=== PATIENT | female | born 1945 | race Caucasian/White ===

== ENCOUNTER 2016-11-16 08:14 | Inpatient (IN) | payer MEDICARE, OTHER ==
[2016-10-22 12:59] LABS: HEMATOCRIT 34.2 % (36.0-47.0); HEMOGLOBIN 11.5 g/dL (12.0-15.5); HGB HCT DIFFERENCE 0.3; MEAN CORPUSCULAR HEMOGLOBIN 30.3 pg (27.0-33.4); MEAN CORPUSCULAR HGB CONC 33.7 g/dL (32.0-36.0); MEAN CORPUSCULAR VOLUME 90 fl (80-97); RED BLOOD COUNT 3.81 10^6/uL (3.72-5.28); RED CELL DISTRIBUTION WIDTH 13.8 % (11.5-14.0); WHITE BLOOD COUNT 5.4 10^3/uL (4.0-10.5)
[2016-10-22 13:11] LABS: APPEARANCE,URINE CLEAR; BILIRUBIN,URINE NEGATIVE (NEGATIVE); GLUCOSE, URINE NEGATIVE (NEGATIVE); KETONES,URINE NEGATIVE (NEGATIVE); LEUKOCYTE ESTERASE,URINE NEGATIVE (NEGATIVE); NITRITE,URINE NEGATIVE (NEGATIVE); PROTEIN,URINE NEGATIVE (NEGATIVE); UROBILINOGEN,URINE NEGATIVE mg/dL (<2.0)
[2016-10-22 13:26] LABS: ANION GAP 10 (5-19); BLOOD UREA NITROGEN 19 mg/dL (7-20); CALCIUM 9.4 mg/dL (8.4-10.2); CARBON DIOXIDE 27 mmol/L (22-30); CHLORIDE 99 mmol/L (98-107); CREATININE RESULT 0.76 mg/dL (0.52-1.25); GLUCOSE 85 mg/dL (75-110); POTASSIUM 4.6 mmol/L (3.6-5.0)
[~2016-11-16 08:14] MED LIST: BUPIVACAINE INJ/PF LIPOSOME/PF 266 MG/20 ML SDV INFIL PRN; BUPIVACAINE INJ/PF LIPOSOME/PF 266 MG/20 ML SDV ONE; CEFAZOLIN INJ 1 GM VIAL IV PRN; IBUPROFEN 800 MG in NORMAL SALINE 250 ML IV PRN; LACTATED RINGERS 1000 ML IV PRN; LANSOPRAZOLE 15 MG TAB.RAP.DR PO PRN; LIDOCAINE 0.5% INJ-PF (5 MG/ML) 50 ML SDV SUBCUT PRN; OXYCODONE HCL SR 10 MG TABLET PO PRN; SCOPOLAMINE HYDROBROMIDE 1.5 MG PATCH.TD72 TD PRN; THROMBIN (BOVINE) TOPICAL 20000 UNIT VIAL ONE; THROMBIN (BOVINE) TOPICAL 5000 UNIT VIAL ONE; VANCOMYCIN HCL 1,000 MG in DEXTROSE 5%-WATER 250 ML IV PRN
[2016-11-16] MEDS ORDERED: PROPOFOL INJ 200 MG/20 ML VIAL IV ONE (09:11)
[2016-11-16] MEDS ORDERED: MIDAZOLAM 2 MG/2 ML INJ ONE ×2 (09:11)
[2016-11-16] MEDS ORDERED: FENTANYL CITRATE INJ/PF 100 MCG/2 ML AMPUL ONE (09:11)
[2016-11-16] MEDS ORDERED: ONDANSETRON HCL INJ/PF 4 MG/2 ML SDV ONE (09:11)
[2016-11-16] MEDS ORDERED: DEXAMETHASONE SOD PHOSPHATE INJ 4 MG/1 ML VIAL ONE (09:11)
[2016-11-16] MEDS ORDERED: MORPHINE SULFATE 10 MG/ML INJ ONE (09:12)
[2016-11-16] MEDS ORDERED: TRANEXAMIC ACID INJ/PF 1,000 MG/10 ML SDV IV ONE ×2 (09:12→13:00)
[2016-11-16] MEDS ORDERED: MORPHINE SULFATE 10 MG/ML INJ IV PRN ×4 (11:01→11:45)
[2016-11-16] MEDS ORDERED: DIPHENHYDRAMINE HCL 50 MG/ML VIAL IV PRN ×2 (11:01→11:45)
[2016-11-16] MEDS ORDERED: PROMETHAZINE HCL INJ 25 MG/1 ML VIAL IV PRN ×2 (11:01)
[2016-11-16] MEDS ORDERED: MEPERIDINE HCL/PF INJ 25 MG/1 ML DISP.SYRIN IV PRN (11:01)
[2016-11-16] MEDS ORDERED: FENTANYL CITRATE INJ/PF 100 MCG/2 ML AMPUL IV PRN ×3 (11:01)
[2016-11-16] MEDS ORDERED: BACITRACIN INJ 50,000 UNIT VIAL ONE (11:22)
[2016-11-16] MEDS ORDERED: BUPIVACAINE INJ/PF LIPOSOME/PF 266 MG/20 ML SDV INFIL ONE (11:30)
[2016-11-16] MEDS ORDERED: BACITRACIN INJ 50,000 UNIT VIAL IR ONE (11:30)
[2016-11-16] MEDS ORDERED: THROMBIN (BOVINE) TOPICAL 5000 UNIT VIAL TP ONE (11:30)
[2016-11-16] MEDS ORDERED: THROMBIN (BOVINE) TOPICAL 20000 UNIT VIAL TP ONE (11:30)
[2016-11-16] MEDS ORDERED: MAG HYDROX/AL HYDROX/SIMETH SUSP 30 ML UDCUP PO PRN (11:45)
[2016-11-16] MEDS ORDERED: ACETAMINOPHEN 325 MG TABLET PO PRN (11:45)
[2016-11-16] MEDS ORDERED: RINGERS SOLUTION,LACTATED 1,000 ML IV PRN (11:45)
[2016-11-16] MEDS ORDERED: MORPHINE SULFATE 10 MG/ML INJ IM PRN (11:45)
[2016-11-16] MEDS ORDERED: ONDANSETRON HCL INJ/PF 4 MG/2 ML SDV IV PRN (11:45)
[2016-11-16] MEDS ORDERED: ONDANSETRON 4 MG TAB.RAPDIS PO PRN (11:45)
[2016-11-16] MEDS ORDERED: ZOLPIDEM TARTRATE 5 MG TABLET PO PRN (11:45)
--- NOTE | 2016-11-16 11:51 | Operative Report ---
Operative Report DATE OF SURGERY: 11/16/16 PREOPERATIVE DIAGNOSIS: Failed right acetabular component POSTOPERATIVE DIAGNOSIS: Potentially infected right hip OPERATION: Right hip revision arthroplasty SURGEON: KATE DEL ANGEL ANESTHESIA: Spinal TISSUE REMOVED OR ALTERED: Tissue to pathology, tissue to microbiology, implants to pathology. ESTIMATED BLOOD LOSS: 100 PROCEDURE: The patient is a 71-year-old white female status post right hip arthroplasty in February 2016. The patient did well until recently when she progressive right hip pain and functional disability. Preoperative laboratory evaluation included a sedimentation rate of 22 mm an hour and a C reactive protein of 5. On the basis of this I assume that this was aseptic loosening and proceeded with a revision arthroplasty. With the patient in a left lateral decubitus position the operative table the right looks terms prepped and draped in sterile fashion. Using a similar incision to the initial hip arthroplasty, took a posterior approach to the hip. Upon penetrating the iliotibial band. This a large serosanguineous fluid collection. This is sent for culture and sensitivity. Tissue was then sent to pathology for frozen section. The answer from pathologist that there 10-20 PMNs per high-power field and they aggravated so that the pathologist felt that this was significant and consistent with acute inflammation. I'm not sure had a reconcile this information with the preoperative laboratory evaluation, but at this point I felt it was best to treat this as an infected hip. At this point, the acetabular liner, and the underlying acetabular shell are removed. Acetabulum is reamed again with a 57 and ending with a 59 hemispherical reamer. Subsequent to a 60 mm multihole cup was impacted into position and secured with 3 screws. A trial reduction was performed with a + 536 mm head, which gave excellent leg length rastafarian and excellent stability. At this point the wound was irrigated with 3 L normal saline and added bacitracin using the pulse lavage. The hip was then reduced and the soft tissues reapproximated using interrupted Vicryl. Skin reapproximated using zaid. A sterile dressing is applied and the patient's returned to PACU in satisfactory condition.
[2016-11-16] MEDS ORDERED: CEFTRIAXONE SODIUM 2,000 MG in DEXTROSE 5%-WATER 100 ML IV SCH (16:00)
[2016-11-16] MEDS: PREGABALIN 75 MG CAPSULE PO SCH (17:25)
[2016-11-16] MEDS: SENNOSIDES/DOCUSATE 8.6-50 MG 1 EACH TABLET PO SCH (17:25)
[2016-11-16] MEDS: CEFTRIAXONE 2 GM/D5W RTU 2 GM/50 ML RTUPB IV SCH (17:26)
[2016-11-16] MEDS: IBUPROFEN 800 MG in NORMAL SALINE 250 ML IV SCH (17:27)
[2016-11-16] MEDS ORDERED: IBUPROFEN 800 MG in NORMAL SALINE 250 ML IV SCH (18:00)
[2016-11-16] MEDS ORDERED: INFLUENZA ADLT QUAD (36MOS+) 2016-17 VAC 0.5 ML SYR IM PRN (20:50)
[2016-11-16] MEDS: RIVAROXABAN 10 MG TABLET PO SCH (21:21)
[2016-11-16] MEDS: OXYCODONE HCL SR 10 MG TABLET PO SCH (21:22)
[2016-11-16] MEDS ORDERED: VANCOMYCIN HCL 1,000 MG in DEXTROSE 5%-WATER 250 ML IV ONE (23:45)
[2016-11-17] MEDS: IBUPROFEN 800 MG in NORMAL SALINE 250 ML IV SCH ×3 (02:00→18:33)
[2016-11-17] MEDS: LEVOTHYROXINE SODIUM 0.075 MG TABLET PO SCH (05:33)
[2016-11-17] MEDS: LANSOPRAZOLE 30 MG TAB.RAP.DR PO SCH (05:34)
[2016-11-17 06:13] LABS: HEMATOCRIT 25.6 % (36.0-47.0); HEMOGLOBIN 8.8 g/dL (12.0-15.5); HGB HCT DIFFERENCE 0.8; MEAN CORPUSCULAR HEMOGLOBIN 30.5 pg (27.0-33.4); MEAN CORPUSCULAR HGB CONC 34.3 g/dL (32.0-36.0); MEAN CORPUSCULAR VOLUME 89 fl (80-97); RED BLOOD COUNT 2.88 10^6/uL (3.72-5.28); RED CELL DISTRIBUTION WIDTH 13.5 % (11.5-14.0); WHITE BLOOD COUNT 5.1 10^3/uL (4.0-10.5)
[2016-11-17 06:32] LABS: ANION GAP 6 (5-19); BLOOD UREA NITROGEN 17 mg/dL (7-20); CALCIUM 8.7 mg/dL (8.4-10.2); CARBON DIOXIDE 28 mmol/L (22-30); CHLORIDE 103 mmol/L (98-107); CREATININE RESULT 0.84 mg/dL (0.52-1.25); GLUCOSE 86 mg/dL (75-110); POTASSIUM 4.2 mmol/L (3.6-5.0); SODIUM 137.4 mmol/L (137-145)
--- NOTE | 2016-11-17 07:00 | PDOC PROGRESS REPORT ---
Subjective Progress Note for:: 11/17/16 Subjective:: Patient denies any pain Physical Exam Vital Signs: Temp Pulse Resp BP Pulse Ox 36.6 C 62 16 113/83 96 11/17/16 04:00 11/17/16 04:00 11/17/16 04:00 11/17/16 04:00 11/17/16 04:00 Intake & Output 11/15/16 11/16/16 11/17/16 06:59 06:59 06:59 Intake Total 8029 Output Total 5205 Balance 2824 General appearance: PRESENT: no acute distress Head exam: PRESENT: normocephalic Eye exam: PRESENT: EOMI Respiratory exam: PRESENT: unlabored Cardiovascular exam: PRESENT: RRR Pulses: PRESENT: +1 pedal pulses bilateral GI/Abdominal exam: PRESENT: soft Extremities exam: PRESENT: other - Right hip dressing clean dry and intact. Leg lengths are equal. Neurovascular examinations intact. Results Laboratory Results: 11/17/16 05:30 11/17/16 05:30 11/16/16 11/17/16 11/17/16 08:51 05:30 05:30 WBC 5.1 RBC 2.88 L Hgb 8.8 L Hct 25.6 L MCV 89 MCH 30.5 MCHC 34.3 RDW 13.5 Plt Count 224 Sodium 137.4 Potassium 4.2 Chloride 103 Carbon Dioxide 28 Anion Gap 6 BUN 17 Creatinine 0.84 Est GFR ( Amer) > 60 Est GFR (Non-Af Amer) > 60 Glucose 86 Calcium 8.7 Blood Type O POSITIVE Antibody Screen NEGATIVE Impressions: Pelvis X-Ray 11/16/16 11:46 IMPRESSION: SATISFACTORY POSTOPERATIVE RIGHT HIP. Status: Imported from PACS Assessment & Plan - Diagnosis (1) Mechanical loosening of prosthetic joint Qualifiers: Internal joint prosthesis site: hip Encounter type: subsequent encounter Laterality: right Qualified Code(s): T84.030D - Mechanical loosening of internal right hip prosthetic joint, subsequent encounter Is this a current diagnosis for this admission?: YesPlan: 71-year-old white female with failure of a right acetabular component. Preoperative laboratory evaluation revealed a sedimentation rate of 22 and a C- reactive protein of less than 5. It was felt to be aseptic loosening. The patient underwent revision arthroplasty yesterday. Gram stain indicates minimal polys and no bacteria. Frozen section demonstrates acute inflammation suggesting a septic process. The patient has not had any constitutional symptoms. There was an issue of neck infected dental implant in the interim between her initial hip arthroplasty in the current which would potentially service 8 etiology for her bacteremia. At this point I think it would be best to continue to treat the patient as if she has a periprosthetic infection until cultures come back negative. Patient will be working with physical therapy today and tomorrow. Antic[facility] on . Depending on the results of cultures potentially the insertion of PICC line and 6 weeks of antibiotics may be appropriate. - Time Time Spent with patient: 15-24 minutes Anticipated discharge: SNF Within: within 48 hours
[2016-11-17] MEDS ORDERED: LEVOTHYROXINE SODIUM 0.025 MG TABLET PO SCH (08:00)
[2016-11-17] MEDS: OXYCODONE HCL SR 10 MG TABLET PO SCH ×2 (10:27→21:58)
[2016-11-17] MEDS: PRENATAL VITAMIN W-O CA NO5/FE FUMARATE/FA CAPSULE PO SCH (10:27)
[2016-11-17] MEDS: PREGABALIN 75 MG CAPSULE PO SCH ×2 (10:28→18:32)
[2016-11-17] MEDS: SENNOSIDES/DOCUSATE 8.6-50 MG 1 EACH TABLET PO SCH ×2 (10:34→18:32)
--- NOTE | 2016-11-17 12:47 | PDOC PROGRESS REPORT ---
Subjective Progress Note for:: 11/17/16 Subjective:: The patient seen today in consultation. She states to feel relatively well. She denies any new symptoms. She is status post revision of her hip. Upon reviewing her recent records it appears to me that Dr. Rich is concerned about possible infection and loosening of that joint. Physical Exam Vital Signs: Temp Pulse Resp BP Pulse Ox 97.9 F 60 18 108/62 96 11/17/16 11:23 11/17/16 11:23 11/17/16 11:23 11/17/16 11:23 11/17/16 11:23 Intake & Output 11/16/16 11/17/16 11/18/16 06:59 06:59 06:59 Intake Total 8029 Output Total 5205 Balance 2824 General appearance: PRESENT: no acute distress Eye exam: PRESENT: EOMI, PERRLA Neck exam: ABSENT: carotid bruit, JVD Respiratory exam: PRESENT: clear to auscultation toribio Cardiovascular exam: PRESENT: RRR, +S1, +S2 Pulses: PRESENT: normal carotid pulses Vascular exam: PRESENT: normal capillary refill GI/Abdominal exam: PRESENT: normal bowel sounds, soft Extremities exam: PRESENT: tenderness Musculoskeletal exam: PRESENT: tenderness Neurological exam: PRESENT: alert, oriented to time, CN II-XII grossly intact Results Laboratory Results: 11/17/16 05:30 11/17/16 05:30 11/17/16 11/17/16 05:30 05:30 WBC 5.1 RBC 2.88 L Hgb 8.8 L Hct 25.6 L MCV 89 MCH 30.5 MCHC 34.3 RDW 13.5 Plt Count 224 Sodium 137.4 Potassium 4.2 Chloride 103 Carbon Dioxide 28 Anion Gap 6 BUN 17 Creatinine 0.84 Est GFR ( Amer) > 60 Est GFR (Non-Af Amer) > 60 Glucose 86 Calcium 8.7 Impressions: Pelvis X-Ray 11/16/16 11:46 IMPRESSION: SATISFACTORY POSTOPERATIVE RIGHT HIP. Assessment & Plan - Diagnosis (1) Mechanical loosening of prosthetic joint Qualifiers: Internal joint prosthesis site: hip Encounter type: subsequent encounter Laterality: right Qualified Code(s): T84.030D - Mechanical loosening of internal right hip prosthetic joint, subsequent encounter Is this a current diagnosis for this admission?: YesPlan: I agree with Dr. Hilario's consideration of a possible infection. The patient did give a history of an infected implant iza. I would continue with the antibiotics until the cultures are negative. (2) Anemia associated with acute blood loss Is this a current diagnosis for this admission?: YesPlan: Would recommend rechecking blood counts in the morning. (3) Hypothyroidism (acquired) Is this a current diagnosis for this admission?: YesPlan: We'll continue current medications.
[2016-11-17] MEDS: CLINDAMYCIN 600 MG/D5W RTU 50 ML IV SCH ×2 (15:31→21:57)
[2016-11-17] MEDS: CEFTRIAXONE 2 GM/D5W RTU 2 GM/50 ML RTUPB IV SCH (18:34)
[2016-11-17] MEDS: OXYCODONE HCL IR 5 MG TABLET PO PRN (20:30)
[2016-11-17] MEDS: RIVAROXABAN 10 MG TABLET PO SCH (21:58)
[2016-11-18] MEDS: IBUPROFEN 800 MG in NORMAL SALINE 250 ML IV SCH (02:03)
[2016-11-18] MEDS: CLINDAMYCIN 600 MG/D5W RTU 50 ML IV SCH ×3 (05:43→21:27)
[2016-11-18] MEDS: LANSOPRAZOLE 30 MG TAB.RAP.DR PO SCH (05:44)
[2016-11-18] MEDS: LEVOTHYROXINE SODIUM 0.075 MG TABLET PO SCH (05:44)
[2016-11-18 07:48] LABS: ANION GAP 6 (5-19); BLOOD UREA NITROGEN 15 mg/dL (7-20); CALCIUM 8.1 mg/dL (8.4-10.2); CARBON DIOXIDE 29 mmol/L (22-30); CHLORIDE 103 mmol/L (98-107); GLUCOSE 82 mg/dL (75-110); POTASSIUM 4.6 mmol/L (3.6-5.0); SODIUM 137.5 mmol/L (137-145)
[2016-11-18 08:07] LABS: HEMATOCRIT 25.6 % (36.0-47.0); HEMOGLOBIN 8.7 g/dL (12.0-15.5); HGB HCT DIFFERENCE 0.5; MEAN CORPUSCULAR HEMOGLOBIN 30.1 pg (27.0-33.4); MEAN CORPUSCULAR HGB CONC 33.9 g/dL (32.0-36.0); MEAN CORPUSCULAR VOLUME 89 fl (80-97); RED BLOOD COUNT 2.88 10^6/uL (3.72-5.28); RED CELL DISTRIBUTION WIDTH 13.6 % (11.5-14.0); WHITE BLOOD COUNT 4.6 10^3/uL (4.0-10.5)
--- NOTE | 2016-11-18 08:13 | PDOC PROGRESS REPORT ---
Subjective Progress Note for:: 11/18/16 Subjective:: The patient states to feel better this morning. She had her dressing changed area She states that there is no pain when she is laying down but she has some pain when she gets up and walks around. Discussed the possibility of an infection and the use of antibiotics. Discussed the possibility of the need for a standard protocol for an infection which is 6 weeks. Physical Exam Vital Signs: Temp Pulse Resp BP Pulse Ox 98.0 F 60 18 109/57 L 94 11/18/16 07:07 11/18/16 07:07 11/18/16 07:07 11/18/16 07:07 11/18/16 07:07 Intake & Output 11/17/16 11/18/16 11/19/16 06:59 06:59 06:59 Intake Total 8029 2260 Output Total 5205 600 Balance 2824 1660 General appearance: PRESENT: no acute distress Head exam: PRESENT: atraumatic Eye exam: PRESENT: conjunctiva pink Neck exam: ABSENT: carotid bruit, JVD Respiratory exam: PRESENT: clear to auscultation toribio Cardiovascular exam: PRESENT: RRR, +S1, +S2 Pulses: PRESENT: normal carotid pulses Vascular exam: PRESENT: normal capillary refill GI/Abdominal exam: PRESENT: normal bowel sounds, soft Extremities exam: PRESENT: tenderness Musculoskeletal exam: PRESENT: tenderness Neurological exam: PRESENT: alert, oriented to time Results Laboratory Results: 11/18/16 05:49 11/18/16 05:49 Sodium 137.5 Potassium 4.6 Chloride 103 Carbon Dioxide 29 Anion Gap 6 BUN 15 Creatinine 0.90 Est GFR ( Amer) > 60 Est GFR (Non-Af Amer) > 60 Glucose 82 Calcium 8.1 L Impressions: Pelvis X-Ray 11/16/16 11:46 IMPRESSION: SATISFACTORY POSTOPERATIVE RIGHT HIP. Assessment & Plan - Diagnosis (1) Mechanical loosening of prosthetic joint Qualifiers: Internal joint prosthesis site: hip Encounter type: subsequent encounter Laterality: right Qualified Code(s): T84.030D - Mechanical loosening of internal right hip prosthetic joint, subsequent encounter Is this a current diagnosis for this admission?: YesPlan: As discussed with Dr. Rich we have started the patient on clindamycin until the cultures from the wound back due to the possibility of oral mucosa with gram -negative's and out and anaerobes being involved as a possible cause of an infection (2) Anemia associated with acute blood loss Is this a current diagnosis for this admission?: YesPlan: Awaiting H&H this morning as a possible cause of postoperative anemia (3) Hypothyroidism (acquired) Is this a current diagnosis for this admission?: YesPlan: Stable continue current medications
[2016-11-18] MEDS: OXYCODONE HCL SR 10 MG TABLET PO SCH (09:40)
[2016-11-18] MEDS: PRENATAL VITAMIN W-O CA NO5/FE FUMARATE/FA CAPSULE PO SCH (09:40)
[2016-11-18] MEDS: PREGABALIN 75 MG CAPSULE PO SCH ×2 (09:40→17:06)
[2016-11-18] MEDS: SENNOSIDES/DOCUSATE 8.6-50 MG 1 EACH TABLET PO SCH ×2 (09:40→17:06)
[2016-11-18] MEDS: CEFTRIAXONE 2 GM/D5W RTU 2 GM/50 ML RTUPB IV SCH (17:06)
[2016-11-18] MEDS: RIVAROXABAN 10 MG TABLET PO SCH (21:27)
[2016-11-18] MEDS: OXYCODONE HCL IR 5 MG TABLET PO PRN (23:47)
[2016-11-19] MEDS: CLINDAMYCIN 600 MG/D5W RTU 50 ML IV SCH ×2 (05:35→13:22)
[2016-11-19] MEDS: LEVOTHYROXINE SODIUM 0.075 MG TABLET PO SCH (05:35)
[2016-11-19] MEDS: LANSOPRAZOLE 30 MG TAB.RAP.DR PO SCH (05:35)
[2016-11-19 06:50] LABS: HEMATOCRIT 28.2 % (36.0-47.0); HEMOGLOBIN 9.5 g/dL (12.0-15.5); HGB HCT DIFFERENCE 0.3; MEAN CORPUSCULAR HEMOGLOBIN 30.3 pg (27.0-33.4); MEAN CORPUSCULAR HGB CONC 33.7 g/dL (32.0-36.0); MEAN CORPUSCULAR VOLUME 90 fl (80-97); RED BLOOD COUNT 3.14 10^6/uL (3.72-5.28); RED CELL DISTRIBUTION WIDTH 13.3 % (11.5-14.0); WHITE BLOOD COUNT 4.9 10^3/uL (4.0-10.5)
--- NOTE | 2016-11-19 06:57 | PDOC TRANSFER SUMMARY ---
General - Admit/Disc Date/PCP Admission Date/Primary Care Provider: 11/16/16 08:14 MIRIAM ANDREWS, Discharge Date: 11/19/16 - Discharge Diagnosis (1) Mechanical loosening of prosthetic joint Is this a current diagnosis for this admission?: Yes - Additional Information Resuscitation Status: Full Code Discharge Diet: As Tolerated Discharge Activity: Balance Activity w/Rest, No Driving, No tub bath Home Medications: Levothyroxine Sodium [Synthroid] 75 mcg PO QAM 02/10/16 Acetaminophen [Tylenol Arthritis 650 mg Tablet] 2 tab PO Q8 PRN 10/19/16 Cholecalciferol (Vitamin D3) [Vitamin D3 2000 unit Tablet] 2,000 unit PO QAM 10/23 Ketotifen Fumarate [Refresh] 1 drop OP QAM 10/19/16 Oxycodone HCl [Oxy-Ir 5 mg Tablet] 5 mg PO Q6HP PRN #0 tablet 11/19/16 Rivaroxaban [Xarelto 10 mg Tablet] 10 mg PO QHS #0 tablet 11/19/16 History of Present Illness Admission Date/PCP: 11/16/16 08:14 MIRIAM ANDREWS, Patient complains of: The patient is 71-year-old white female status post right hip arthroplasty in February 2016 who presented with progressive right hip pain and functional disability. Imaging studies suggested loosening of the acetabular component. Blood studies suggested that this was an aseptic loosening. The patient's now admitted for an elective revision of the right acetabular component. History of Present Illness: TAD MURRIETA is a 71 year old female Hospital Course Hospital Course: The patient submitted to the operating room where she undergoes a revision right acetabular component. She tolerates the procedure without complication. Intraoperative findings by frozen section were consistent with acute inflammation suggesting that this was a septic process. The patient was started postoperatively on vancomycin, Cleocin, and Rocephin. Gram stain from the intraoperative cultures demonstrates few polys and no bacteria. Cultures remained no growth so far. The patient has made slow steady progress with physical therapy but is experiencing significant right lower extremity pain associated with activity. She subsequently ready for transfer to a long term facility for postoperative rehabilitation, she can be maintained on a weightbearing as tolerated basis. Rabia dressing can be discontinued on postop day #7, and exchange for an OpSite. Patient will return to see Dr. Rich in [facility] for surgery in approximately 2 weeks for staple removal. Should cultures turn positive. Following discharge to long term facility. The patient will need a PICC line and 6 weeks of IV antibiotic therapy. Physical Exam Vital Signs: Temp Pulse Resp BP Pulse Ox 37.3 C 78 17 130/63 H 96 11/19/16 00:26 11/19/16 00:26 11/19/16 00:26 11/19/16 00:26 11/19/16 00:26 Intake & Output 11/17/16 11/18/16 11/19/16 06:59 06:59 06:59 Intake Total 8029 2260 1860 Output Total 5205 600 Balance 2824 1660 1860 Results Laboratory Results: 11/18/16 05:49 11/18/16 11/18/16 05:49 05:49 WBC 4.6 RBC 2.88 L Hgb 8.7 L Hct 25.6 L MCV 89 MCH 30.1 MCHC 33.9 RDW 13.6 Plt Count 215 Sodium 137.5 Potassium 4.6 Chloride 103 Carbon Dioxide 29 Anion Gap 6 BUN 15 Creatinine 0.90 Est GFR ( Amer) > 60 Est GFR (Non-Af Amer) > 60 Glucose 82 Calcium 8.1 L Impressions: Pelvis X-Ray 11/16/16 11:46 IMPRESSION: SATISFACTORY POSTOPERATIVE RIGHT HIP. Status: Imported from PACS Transfer Plan - Time Spent with Patient Time spent with patient: Less than 30 Minutes Qualifiers PATEINT BEING DISCHARGED WITH ANY OF THE FOLLOWING DIAGNOSIS?: No VTE patient discharged on overlapping Therapy?: Yes
--- NOTE | 2016-11-19 08:37 | PDOC PROGRESS REPORT ---
Subjective Progress Note for:: 11/19/16 Subjective:: The patient states to feel better. She is still having pain in her right hip when she stands up. She states that the pain feels different from the first time she had a hip replacement. She does have rumbling in her stomach but have not had a bowel movement. She is passing gas. Physical Exam Vital Signs: Temp Pulse Resp BP Pulse Ox 98.8 F 76 16 147/65 H 97 11/19/16 07:41 11/19/16 07:41 11/19/16 07:41 11/19/16 07:41 11/19/16 07:41 Intake & Output 11/18/16 11/19/16 11/20/16 06:59 06:59 06:59 Intake Total 2260 1860 Output Total 600 Balance 1660 1860 General appearance: PRESENT: no acute distress Head exam: PRESENT: atraumatic Eye exam: PRESENT: conjunctiva pink Neck exam: ABSENT: carotid bruit, JVD Respiratory exam: PRESENT: clear to auscultation toribio Cardiovascular exam: PRESENT: RRR, +S1, +S2 Pulses: PRESENT: normal carotid pulses Vascular exam: PRESENT: normal capillary refill GI/Abdominal exam: PRESENT: normal bowel sounds, soft Extremities exam: PRESENT: tenderness Musculoskeletal exam: PRESENT: tenderness Neurological exam: PRESENT: alert, awake, oriented to time Results Laboratory Results: 11/19/16 05:49 11/18/16 05:49 11/19/16 05:49 WBC 4.9 RBC 3.14 L Hgb 9.5 L Hct 28.2 L MCV 90 MCH 30.3 MCHC 33.7 RDW 13.3 Plt Count 261 Impressions: Pelvis X-Ray 11/16/16 11:46 IMPRESSION: SATISFACTORY POSTOPERATIVE RIGHT HIP. Assessment & Plan - Diagnosis (1) Mechanical loosening of prosthetic joint Qualifiers: Internal joint prosthesis site: hip Encounter type: subsequent encounter Laterality: right Qualified Code(s): T84.030D - Mechanical loosening of internal right hip prosthetic joint, subsequent encounter Is this a current diagnosis for this admission?: YesPlan: The tissue cultures are negative so far I agree with stopping clindamycin and Rocephin. (2) Anemia associated with acute blood loss Is this a current diagnosis for this admission?: YesPlan: The H&H is up and I would continue with present treatment (3) Hypothyroidism (acquired) Is this a current diagnosis for this admission?: YesPlan: Stable continue current medications (4) Constipation due to opioid therapy Is this a current diagnosis for this admission?: YesPlan: The patient does have good bowel sounds without any abdominal pain at this point I wouldn't suggest a fleets enema and continue with laxatives
[2016-11-19] MEDS: OXYCODONE HCL IR 5 MG TABLET PO PRN (08:59)
[2016-11-19] MEDS: PRENATAL VITAMIN W-O CA NO5/FE FUMARATE/FA CAPSULE PO SCH (09:00)
[2016-11-19] MEDS: PREGABALIN 75 MG CAPSULE PO SCH (09:00)
[2016-11-19] MEDS: SENNOSIDES/DOCUSATE 8.6-50 MG 1 EACH TABLET PO SCH (09:00)
[2016-11-19] MEDS ORDERED: NA PHOS,M-B/NA PHOS,DI-BA (ADULT) 133 ML ENEMA PR ONE (10:00)
[2016-11-19 15:49] VITALS: BP 122/66
== END 2016-11-19 16:58 | DRG 467 ==
LOC: INOR 08:14 → 4S 13:35
PROVIDERS: ADMIT Orthopaedic Surgery; ATTEND Orthopaedic Surgery
PROC: 0SPA0JZ Removal of Synthetic Substitute from Right Hip Joint, Acetabular Surface, Open Approach (ICD-10-PCS; 2016-11-16)
PROC: 0SRA00A Replacement of Right Hip Joint, Acetabular Surface with Polyethylene Synthetic Substitute, Uncemented, Open Approach (ICD-10-PCS; principal; 2016-11-16 10:00)
DX: T84.030A Mechanical loosening of internal right hip prosthetic joint, initial encounter (principal); D62 Acute posthemorrhagic anemia; I48.91 Unspecified atrial fibrillation; E89.0 Postprocedural hypothyroidism; Y83.6 Removal of other organ (partial) (total) as the cause of abnormal reaction of the patient, or of later complication, without mention of misadventure at the time of the procedure; K59.03 Drug induced constipation; T40.2X5A Adverse effect of other opioids, initial encounter; Z98.42 Cataract extraction status, left eye; Z80.9 Family history of malignant neoplasm, unspecified; Z82.49 Family history of ischemic heart disease and other diseases of the circulatory system
CPT/HCPCS: 01215; 36415; 72170; 80048; 81001; 85027; 86850; 86900; 86901; 87070; 87075; 87205; 88305; 88331; 90686; 94799; C1713; C9290; G8978-GP; G8979-GP; G8987-GO; G8988-GO; J0690; J0696; J1100; J1741; J2250; J2270; J2405; J2704; J3010; J3370; J3490; J7050; J7060; J7120

== ENCOUNTER → 2017-04-30 | Outpatient (CLI) | payer MEDICARE, OTHER ==
--- NOTE | 2017-04-30 12:54 | RADIOLOGY REPORT (SQ) ---
EXAM DESCRIPTION: CHEST PA/LATERAL COMPLETED DATE/TIME: 04/30/2017 12:38 pm REASON FOR STUDY: PRE OP COMPARISON: 09/28/2016 EXAM PARAMETERS: NUMBER OF VIEWS: two views TECHNIQUE: Digital Frontal and Lateral radiographic views of the chest acquired. RADIATION DOSE: NA LIMITATIONS: none FINDINGS: LUNGS AND PLEURA: No opacities, masses or pneumothorax. No pleural effusion. MEDIASTINUM AND HILAR STRUCTURES: No masses or contour abnormalities. HEART AND VASCULAR STRUCTURES: Heart normal size. No evidence for failure. BONES: No acute findings. HARDWARE: None in the chest. OTHER: No other significant finding. IMPRESSION: NO SIGNIFICANT RADIOGRAPHIC FINDING IN THE CHEST. TECHNICAL DOCUMENTATION: JOB ID: [id number] [employer]- All Rights Reserved
[2017-04-30 13:14] LABS: ABSOLUTE BASOPHILS # (AUTO) 0.1 10^3/uL (0.0-0.2); ABSOLUTE EOSINOPHILS # (AUTO) 0.3 10^3/uL (0.0-0.6); ABSOLUTE LYMPHOCYTES (AUTO) 1.1 10^3/uL (0.5-4.7); ABSOLUTE MONOCYTES (AUTO) 0.3 10^3/uL (0.1-1.4); ABSOLUTE NEUT (AUTO) 3.1 10^3/uL (1.7-8.2); BASOPHILS % (AUTO) 1.5 % (0-2); EOSINOPHILS % (AUTO) 5.8 % (0-6); HEMATOCRIT 36.2 % (36.0-47.0); HEMOGLOBIN 11.8 g/dL (12.0-15.5); HGB HCT DIFFERENCE -0.8; LYMPHOCYTES % (AUTO) 22.7 % (13-45); MEAN CORPUSCULAR HEMOGLOBIN 29.1 pg (27.0-33.4); MEAN CORPUSCULAR HGB CONC 32.6 g/dL (32.0-36.0); MEAN CORPUSCULAR VOLUME 89 fl (80-97); RED BLOOD COUNT 4.06 10^6/uL (3.72-5.28); RED CELL DISTRIBUTION WIDTH 14.9 % (11.5-14.0); WHITE BLOOD COUNT 4.9 10^3/uL (4.0-10.5)
[2017-04-30 13:28] LABS: APPEARANCE,URINE CLEAR; BILIRUBIN,URINE NEGATIVE (NEGATIVE); GLUCOSE, URINE NEGATIVE (NEGATIVE); KETONES,URINE NEGATIVE (NEGATIVE); LEUKOCYTE ESTERASE,URINE NEGATIVE (NEGATIVE); NITRITE,URINE NEGATIVE (NEGATIVE); PROTEIN,URINE NEGATIVE (NEGATIVE); URINE SPECIFIC GRAVITY 1.004; UROBILINOGEN,URINE NEGATIVE mg/dL (<2.0)
[2017-04-30 13:29] LABS: RBC,URINE NONE SEEN /HPF; WBC,URINE NONE SEEN /HPF
[2017-04-30 13:39] LABS: ANION GAP 9 (5-19); BLOOD UREA NITROGEN 13 mg/dL (7-20); CALCIUM 9.2 mg/dL (8.4-10.2); CARBON DIOXIDE 27 mmol/L (22-30); CHLORIDE 103 mmol/L (98-107); CREATININE RESULT 0.68 mg/dL (0.52-1.25); GLUCOSE 86 mg/dL (75-110); POTASSIUM 4.4 mmol/L (3.6-5.0); SODIUM 138.5 mmol/L (137-145)
--- NOTE | 2017-05-01 17:29 | EKG REPORT ---
SEVERITY:- BORDERLINE ECG - SINUS RHYTHM BORDERLINE PROLONGED QT INTERVAL : Confirmed by: Merry Samuels 01-May-2017 17:29:18
== END ==
LOC: OD 11:47
PROVIDERS: ATTEND Orthopaedic Surgery
DX: Z01.810 Encounter for preprocedural cardiovascular examination (principal); Z01.812 Encounter for preprocedural laboratory examination; Z01.818 Encounter for other preprocedural examination
CPT/HCPCS: 36415; 71020; 80048; 81001; 85025; 93005; 93010

== ENCOUNTER 2017-05-26 05:30 | Inpatient (IN) | payer MEDICARE, OTHER ==
[~2017-05-26 05:30] MED LIST changes: -BUPIVACAINE INJ/PF LIPOSOME/PF 266 MG/20 ML SDV INFIL PRN; +BUPIVACAINE INJ/PF LIPOSOME/PF 266 MG/20 ML SDV INJ PRN; -BUPIVACAINE INJ/PF LIPOSOME/PF 266 MG/20 ML SDV ONE; -SCOPOLAMINE HYDROBROMIDE 1.5 MG PATCH.TD72 TD PRN; -THROMBIN (BOVINE) TOPICAL 20000 UNIT VIAL ONE; -THROMBIN (BOVINE) TOPICAL 5000 UNIT VIAL ONE
[2017-05-26] MEDS ORDERED: BUPIVACAINE INJ/PF LIPOSOME/PF 266 MG/20 ML SDV ONE (06:48)
[2017-05-26] MEDS ORDERED: THROMBIN (BOVINE) 5000 UNIT EPITAXIS KIT ONE (06:48)
[2017-05-26] MEDS ORDERED: THROMBIN (BOVINE) TOPICAL 20000 UNIT VIAL ONE (06:48)
[2017-05-26] MEDS ORDERED: PROPOFOL INJ 200 MG/20 ML VIAL IV ONE (07:07)
[2017-05-26] MEDS ORDERED: FENTANYL CITRATE INJ/PF 250 MCG/5 ML AMPULE ONE (07:07)
[2017-05-26] MEDS ORDERED: EPHEDRINE SULFATE INJ 50 MG/1 ML AMPULE ONE (07:07)
[2017-05-26] MEDS ORDERED: MIDAZOLAM 2 MG/2 ML INJ ONE (07:07)
[2017-05-26] MEDS ORDERED: TRANEXAMIC ACID INJ/PF 1,000 MG/10 ML SDV IV ONE ×3 (07:08→10:00)
[2017-05-26] MEDS ORDERED: HYDROMORPHONE HCL INJ/PF 2 MG/ML AMPULE ONE (07:08)
[2017-05-26] MEDS ORDERED: ACETAMINOPHEN 0 ML IV ONE (07:08)
[2017-05-26] MEDS ORDERED: MORPHINE SULFATE 10 MG/ML INJ IV PRN ×4 (08:09→08:37)
[2017-05-26] MEDS ORDERED: PROMETHAZINE HCL INJ 25 MG/1 ML VIAL IV PRN ×2 (08:09)
[2017-05-26] MEDS ORDERED: FENTANYL CITRATE INJ/PF 100 MCG/2 ML AMPUL IV PRN ×3 (08:09)
[2017-05-26] MEDS ORDERED: MEPERIDINE HCL/PF INJ 25 MG/1 ML DISP.SYRIN IV PRN (08:09)
[2017-05-26] MEDS ORDERED: OXYCODONE-ACETAMINOPHEN 5-325 MG TABLET PO PRN ×2 (08:09)
[2017-05-26] MEDS ORDERED: DIPHENHYDRAMINE HCL 50 MG/ML VIAL IV PRN ×2 (08:09→08:37)
[2017-05-26] MEDS ORDERED: ZOLPIDEM TARTRATE 5 MG TABLET PO PRN (08:37)
[2017-05-26] MEDS ORDERED: ACETAMINOPHEN 325 MG TABLET PO PRN (08:37)
[2017-05-26] MEDS ORDERED: MAG HYDROX/AL HYDROX/SIMETH SUSP 30 ML UDCUP PO PRN (08:37)
[2017-05-26] MEDS ORDERED: ONDANSETRON 4 MG TAB.RAPDIS PO PRN (08:37)
[2017-05-26] MEDS ORDERED: RINGERS SOLUTION,LACTATED 1,000 ML IV PRN (08:37)
[2017-05-26] MEDS ORDERED: MORPHINE SULFATE 10 MG/ML INJ IM PRN (08:37)
--- NOTE | 2017-05-26 08:37 | Operative Report ---
Operative Report DATE OF SURGERY: 05/26/17 PREOPERATIVE DIAGNOSIS: Left knee arthrosis OPERATION: Left knee arthroplasty SURGEON: KATE DEL ANGEL ANESTHESIA: Spinal TISSUE REMOVED OR ALTERED: Bone to pathology ESTIMATED BLOOD LOSS: 100 PROCEDURE: Implants used: Femur: Triathlon #6 CR femur Tibia: 5 tibia Tibial liner: 9 mm CS insert Patella: 35 mm oval patella Procedure with the patient supine on the operating table the left the limb is prepped and draped in a sterile fashion. The limb was elevated for exsanguination and the tourniquet inflated to 280 torr. A standard midline median parapatellar approach the knee is taken. Access is gained to the femoral canal through the intercondylar notch. Intramedullary alignment instrumentation used to resect 10 mm of distal femur in 5 of valgus. Sizing guide indicated a size 6 femur. Appropriate cutting jig is then used to fashion anterior posterior and chamfer cuts. A trial reduction femurs performed and this is judged to be adequate. Attention was next turned to the tibia. Using an extra medullary alignment system 9 millimeters was resected off the lateral tibial plateau. This is sized to a size 5 tibia. A trial reduction was now performed with a 6 femur and a 5 tibia using a 9 millimeters spacer. It is full extension and central patellofemoral tracking. The articular surface the patella was next resected using an oscillating saw. All trial implants were removed. Polymethylmethacrylate is mixed and used to cement the above implants in place. On adequate curing the cement excess cement was removed the tourniquet was deflated hemostasis obtained the wound is then closed in layers using interrupted Vicryl followed by zaid. A sterile compressive dressing was applied and the patient returned to recovery room in satisfactory condition.
--- NOTE | 2017-05-26 09:22 | RADIOLOGY REPORT (SQ) ---
EXAM DESCRIPTION: KNEE LEFT 2 VIEWS COMPLETED DATE/TIME: 05/26/2017 9:12 am REASON FOR STUDY: Post OP -Long Cassette in PACU M17.12 UNILATERAL PRIMARY OSTEOARTHRITIS, LEFT KNE E COMPARISON: None. NUMBER OF VIEWS: 2 view(s). TECHNIQUE: Digital radiographic images of the left knee post-procedure. LIMITATIONS: None. FINDINGS: BONES: No worrisome or unexpected findings post-procedure. DEVICE: Patient is status post left total knee replacement. The prosthesis appears well seated in th e distal femur and proximal tibia in the projections obtained SOFT TISSUES: No worrisome findings. Expected postoperative soft tissue changes. IMPRESSION: SATISFACTORY POSTOPERATIVE LEFT KNEE. TECHNICAL DOCUMENTATION: JOB ID: [id number] [email or web address]- All Rights Reserved
[2017-05-26] MEDS ORDERED: ONDANSETRON HCL INJ/PF 4 MG/2 ML SDV ONE (11:41)
[2017-05-26] MEDS ORDERED: LIDOCAINE 2% INJ-PF (20 MG/ML) 10 ML AMPUL ONE (11:41)
[2017-05-26] MEDS: ONDANSETRON HCL INJ/PF 4 MG/2 ML SDV IV PRN ×2 (16:27→22:10)
[2017-05-26] MEDS: IBUPROFEN 800 MG in NORMAL SALINE 250 ML IV SCH ×2 (16:29→21:26)
[2017-05-26] MEDS: SENNOSIDES/DOCUSATE 8.6-50 MG 1 EACH TABLET PO SCH (18:02)
[2017-05-26] MEDS ORDERED: VANCOMYCIN HCL 1,000 MG in DEXTROSE 5%-WATER 250 ML IV ONE (20:37)
[2017-05-26] MEDS: OXYCODONE HCL SR 10 MG TABLET PO SCH (21:26)
[2017-05-26] MEDS: RIVAROXABAN 10 MG TABLET PO SCH (21:26)
[2017-05-27] MEDS: IBUPROFEN 800 MG in NORMAL SALINE 250 ML IV SCH ×3 (05:21→22:25)
[2017-05-27] MEDS ORDERED: LANSOPRAZOLE 30 MG TAB.RAP.DR PO SCH (06:00)
[2017-05-27] MEDS: LANSOPRAZOLE 30 MG TAB.RAP.DR PO SCH (06:02)
[2017-05-27 06:29] LABS: ANION GAP 7 (5-19); BLOOD UREA NITROGEN 12 mg/dL (7-20); CALCIUM 8.1 mg/dL (8.4-10.2); CARBON DIOXIDE 24 mmol/L (22-30); CHLORIDE 101 mmol/L (98-107); CREATININE RESULT 0.57 mg/dL (0.52-1.25); GLUCOSE 113 mg/dL (75-110); POTASSIUM 3.8 mmol/L (3.6-5.0); SODIUM 131.9 mmol/L (137-145)
[2017-05-27 06:36] LABS: HEMATOCRIT 27.1 % (36.0-47.0); HEMOGLOBIN 9.1 g/dL (12.0-15.5); HGB HCT DIFFERENCE 0.2; MEAN CORPUSCULAR HEMOGLOBIN 29.8 pg (27.0-33.4); MEAN CORPUSCULAR HGB CONC 33.6 g/dL (32.0-36.0); MEAN CORPUSCULAR VOLUME 89 fl (80-97); RED BLOOD COUNT 3.07 10^6/uL (3.72-5.28); RED CELL DISTRIBUTION WIDTH 13.9 % (11.5-14.0); WHITE BLOOD COUNT 6.8 10^3/uL (4.0-10.5)
--- NOTE | 2017-05-27 07:12 | PDOC PROGRESS REPORT ---
Subjective Progress Note for:: 05/27/17 Subjective:: Patient with minor complaints of pain Physical Exam Vital Signs: Temp Pulse Resp BP Pulse Ox 36.3 C 70 16 107/61 99 05/27/17 03:19 05/27/17 03:19 05/27/17 03:19 05/27/17 03:19 05/27/17 03:19 Intake & Output 05/26/17 05/27/17 05/28/17 06:59 06:59 06:59 Intake Total 0 4660 Output Total 2915 Balance 0 1745 Weight 81.5 kg General appearance: PRESENT: mild distress Head exam: PRESENT: normocephalic Respiratory exam: PRESENT: unlabored Cardiovascular exam: PRESENT: RRR Pulses: PRESENT: +1 pedal pulses bilateral Vascular exam: PRESENT: normal capillary refill GI/Abdominal exam: PRESENT: soft Rectal exam: PRESENT: deferred Extremities exam: PRESENT: other - Extremity clean dry and intact. There is minimal distal edema. Distal neurovascular examination is intact. Neurological exam: PRESENT: alert, awake, oriented to person, oriented to place , oriented to time, oriented to situation. ABSENT: motor sensory deficit Psychiatric exam: PRESENT: appropriate affect, normal mood. ABSENT: homicidal ideation, suicidal ideation Skin exam: PRESENT: dry, intact, warm. ABSENT: cyanosis, rash Results Laboratory Results: 05/27/17 04:38 05/27/17 04:38 05/27/17 05/27/17 04:38 04:38 WBC 6.8 RBC 3.07 L Hgb 9.1 L Hct 27.1 L MCV 89 MCH 29.8 MCHC 33.6 RDW 13.9 Plt Count 215 Sodium 131.9 L Potassium 3.8 Chloride 101 Carbon Dioxide 24 Anion Gap 7 BUN 12 Creatinine 0.57 Est GFR ( Amer) > 60 Est GFR (Non-Af Amer) > 60 Glucose 113 H Calcium 8.1 L Impressions: Knee X-Ray 05/26/17 08:38 IMPRESSION: SATISFACTORY POSTOPERATIVE LEFT KNEE. Status: Imported from PACS Assessment & Plan - Diagnosis (1) Arthritis of left knee Is this a current diagnosis for this admission?: YesPlan: 2-year-old white female postop day 1 from left knee arthroplasty. Overall the patient's doing well. She ambulated 60 feet on the day of surgery. Anticipate discharge to a [facility] facility when a bed is available. - Time Time Spent with patient: 15-24 minutes Anticipated discharge: SNF Within: when bed available
[2017-05-27] MEDS ORDERED: LEVOTHYROXINE SODIUM 0.025 MG TABLET PO SCH (08:00)
[2017-05-27] MEDS ORDERED: (PENDING PHARMACY ID) (Ketotifen Fumarate [Refresh] 1 DROP) OP SCH (08:00)
[2017-05-27] MEDS: ONDANSETRON HCL INJ/PF 4 MG/2 ML SDV IV PRN (08:07)
[2017-05-27] MEDS: LEVOTHYROXINE SODIUM 0.075 MG TABLET PO SCH (09:42)
[2017-05-27] MEDS: OXYCODONE HCL SR 10 MG TABLET PO SCH ×2 (09:43→22:11)
[2017-05-27] MEDS: SENNOSIDES/DOCUSATE 8.6-50 MG 1 EACH TABLET PO SCH ×2 (09:44→18:24)
[2017-05-27] MEDS: PRENATAL VITAMIN W-O CA NO5/FE FUMARATE/FA CAPSULE PO SCH (09:44)
[2017-05-27] MEDS: CARBOXYMETHYLCELLULOSE SOD 0.5% 0.4 ML DROPERETTE OP SCH (14:04)
[2017-05-27] MEDS ORDERED: MAG HYDROX/AL HYDROX/SIMETH SUSP 30 ML UDCUP PO PRN (14:12)
[2017-05-27] MEDS ORDERED: ZOLPIDEM TARTRATE 5 MG TABLET PO PRN (14:12)
[2017-05-27] MEDS ORDERED: ONDANSETRON HCL INJ/PF 4 MG/2 ML SDV IV PRN (14:13)
[2017-05-27] MEDS ORDERED: ONDANSETRON 4 MG TAB.RAPDIS PO PRN (14:13)
[2017-05-27] MEDS: RIVAROXABAN 10 MG TABLET PO SCH (22:11)
[2017-05-28 05:20] LABS: HEMATOCRIT 25.9 % (36.0-47.0); HEMOGLOBIN 8.7 g/dL (12.0-15.5); HGB HCT DIFFERENCE 0.2; MEAN CORPUSCULAR HEMOGLOBIN 29.9 pg (27.0-33.4); MEAN CORPUSCULAR HGB CONC 33.4 g/dL (32.0-36.0); MEAN CORPUSCULAR VOLUME 89 fl (80-97); RED CELL DISTRIBUTION WIDTH 14.6 % (11.5-14.0); WHITE BLOOD COUNT 5.4 10^3/uL (4.0-10.5)
[2017-05-28] MEDS: IBUPROFEN 800 MG in NORMAL SALINE 250 ML IV SCH (06:16)
[2017-05-28] MEDS: LANSOPRAZOLE 30 MG TAB.RAP.DR PO SCH (06:16)
--- NOTE | 2017-05-28 07:05 | PDOC PROGRESS REPORT ---
Subjective Progress Note for:: 05/28/17 Subjective:: Patient reports improved pain and decreased nausea Physical Exam Vital Signs: Temp Pulse Resp BP Pulse Ox 36.9 C 64 17 119/61 96 05/27/17 23:09 05/27/17 23:09 05/27/17 23:09 05/27/17 23:09 05/27/17 23:09 Intake & Output 05/27/17 05/28/17 05/29/17 06:59 06:59 06:59 Intake Total 4660 2547 Output Total 2915 1999 Balance 1745 547 Weight 81.5 kg 81.5 kg General appearance: PRESENT: no acute distress Head exam: PRESENT: normocephalic Eye exam: PRESENT: EOMI Respiratory exam: PRESENT: unlabored Cardiovascular exam: PRESENT: RRR Pulses: PRESENT: +1 pedal pulses bilateral Vascular exam: PRESENT: normal capillary refill GI/Abdominal exam: PRESENT: soft Musculoskeletal exam: PRESENT: other - Small amount of drainage which is old at the distal aspect of the left knee picot dressing Neurological exam: PRESENT: alert, awake, oriented to person, oriented to place , oriented to time, oriented to situation. ABSENT: motor sensory deficit Psychiatric exam: PRESENT: appropriate affect, normal mood. ABSENT: homicidal ideation, suicidal ideation Skin exam: PRESENT: dry, intact, warm. ABSENT: cyanosis, rash Results Laboratory Results: 05/28/17 04:14 05/27/17 04:38 05/28/17 04:14 WBC 5.4 RBC 2.90 L Hgb 8.7 L Hct 25.9 L MCV 89 MCH 29.9 MCHC 33.4 RDW 14.6 H Plt Count 201 Impressions: Knee X-Ray 05/26/17 08:38 IMPRESSION: SATISFACTORY POSTOPERATIVE LEFT KNEE. Status: Imported from PACS Assessment & Plan - Diagnosis (1) Arthritis of left knee Is this a current diagnosis for this admission?: YesPlan: 72-year-old white female postop day 2 from left knee arthroplasty. Plan for care home facility placement when bed available. - Time Time Spent with patient: 15-24 minutes Anticipated discharge: SNF Within: when bed available
[2017-05-28] MEDS: CARBOXYMETHYLCELLULOSE SOD 0.5% 0.4 ML DROPERETTE OP SCH (08:12)
[2017-05-28] MEDS: LEVOTHYROXINE SODIUM 0.075 MG TABLET PO SCH (08:13)
[2017-05-28] MEDS: OXYCODONE HCL SR 10 MG TABLET PO SCH (10:24)
[2017-05-28] MEDS: SENNOSIDES/DOCUSATE 8.6-50 MG 1 EACH TABLET PO SCH ×2 (10:25→17:39)
[2017-05-28] MEDS: PRENATAL VITAMIN W-O CA NO5/FE FUMARATE/FA CAPSULE PO SCH (10:25)
[2017-05-28] MEDS: RIVAROXABAN 10 MG TABLET PO SCH (22:03)
[2017-05-28] MEDS: OXYCODONE HCL IR 5 MG TABLET PO PRN (22:03)
[2017-05-29] MEDS: LANSOPRAZOLE 30 MG TAB.RAP.DR PO SCH (05:00)
[2017-05-29 05:31] LABS: HEMATOCRIT 29.6 % (36.0-47.0); HEMOGLOBIN 10.2 g/dL (12.0-15.5); MEAN CORPUSCULAR HGB CONC 34.5 g/dL (32.0-36.0); MEAN CORPUSCULAR VOLUME 90 fl (80-97); RED BLOOD COUNT 3.29 10^6/uL (3.72-5.28); RED CELL DISTRIBUTION WIDTH 14.2 % (11.5-14.0); WHITE BLOOD COUNT 5.7 10^3/uL (4.0-10.5)
[2017-05-29] MEDS: LEVOTHYROXINE SODIUM 0.075 MG TABLET PO SCH (07:46)
[2017-05-29] MEDS: CARBOXYMETHYLCELLULOSE SOD 0.5% 0.4 ML DROPERETTE OP SCH (07:46)
[2017-05-29] MEDS: SENNOSIDES/DOCUSATE 8.6-50 MG 1 EACH TABLET PO SCH ×2 (09:25→17:25)
[2017-05-29] MEDS: OXYCODONE HCL IR 5 MG TABLET PO PRN (09:25)
[2017-05-29] MEDS: PRENATAL VITAMIN W-O CA NO5/FE FUMARATE/FA CAPSULE PO SCH (09:25)
--- NOTE | 2017-05-29 11:16 | PDOC PROGRESS REPORT ---
Subjective Subjective:: Patient seen on rounds. Currently pain control. Lying in bed comfortably. Has noticed increased temperature about 99 denies chills or sweats. Physical Exam Vital Signs: Temp Pulse Resp BP Pulse Ox 98.4 F 77 17 137/81 H 98 05/29/17 08:00 05/29/17 08:00 05/29/17 08:00 05/29/17 08:00 05/29/17 08:00 Intake & Output 05/28/17 05/29/17 05/30/17 06:59 06:59 06:59 Intake Total 2547 1800 Output Total 2000 600 Balance 547 1200 Weight 81.5 kg 88.1 kg Musculoskeletal exam: PRESENT: other - Left lower extremity: Minimal dried blood distally no erythema or drainage. Minimal thigh swelling. No calf tenderness. 2+. Intact plantar flexion/dorsiflexion. No sensory deficits. Results Laboratory Results: 05/29/17 05:03 05/27/17 04:38 05/29/17 05:03 WBC 5.7 RBC 3.29 L Hgb 10.2 L Hct 29.6 L MCV 90 MCH 31.0 MCHC 34.5 RDW 14.2 H Plt Count 268 Impressions: Knee X-Ray 05/26/17 08:38 IMPRESSION: SATISFACTORY POSTOPERATIVE LEFT KNEE. Assessment & Plan - Diagnosis (1) Arthritis of left knee Is this a current diagnosis for this admission?: YesPlan: Status post left total knee arthroplasty #1. Pain control #2 encouraged ISD #3 Xarelto for DVT prophylaxis #4 physical therapy weightbearing as tolerated #5 discharge planning to [facility] when bed available
[2017-05-29] MEDS: RIVAROXABAN 10 MG TABLET PO SCH (21:16)
[2017-05-30] MEDS: LANSOPRAZOLE 30 MG TAB.RAP.DR PO SCH (05:04)
[2017-05-30] MEDS: CARBOXYMETHYLCELLULOSE SOD 0.5% 0.4 ML DROPERETTE OP SCH (07:43)
[2017-05-30] MEDS: LEVOTHYROXINE SODIUM 0.075 MG TABLET PO SCH (07:43)
[2017-05-30] MEDS: SENNOSIDES/DOCUSATE 8.6-50 MG 1 EACH TABLET PO SCH ×2 (09:09→17:02)
[2017-05-30] MEDS: PRENATAL VITAMIN W-O CA NO5/FE FUMARATE/FA CAPSULE PO SCH (09:09)
[2017-05-30] MEDS: OXYCODONE HCL IR 5 MG TABLET PO PRN ×2 (09:09→16:17)
--- NOTE | 2017-05-30 12:31 | PDOC PROGRESS REPORT ---
Subjective Subjective:: Patient seen on rounds. Currently pain control. Lying in bed comfortably. Denies fever chills or sweats. Physical Exam Vital Signs: Temp Pulse Resp BP Pulse Ox 98.2 F 73 20 124/69 98 05/30/17 11:29 05/30/17 11:29 05/30/17 11:29 05/30/17 11:29 05/30/17 11:29 Intake & Output 05/29/17 05/30/17 05/31/17 06:59 06:59 06:59 Intake Total 1800 1633 Output Total 600 400 Balance 1200 1233 Weight 88.1 kg 88.4 kg Musculoskeletal exam: PRESENT: other - Left lower extremity: Dressing clean/dry/ intact no erythema or drainage. No calf tenderness. Intact plantar flexion/ dorsiflexion Results Laboratory Results: 05/29/17 05:03 05/27/17 04:38 Impressions: Knee X-Ray 05/26/17 08:38 IMPRESSION: SATISFACTORY POSTOPERATIVE LEFT KNEE. Assessment & Plan - Diagnosis (1) Arthritis of left knee Is this a current diagnosis for this admission?: YesPlan: Status post left total knee arthroplasty #1. Pain control #2 encouraged ISD #3 Xarelto for DVT prophylaxis #4 physical therapy weightbearing as tolerated #5 discharge planning to [facility] when bed available
[2017-05-30] MEDS: RIVAROXABAN 10 MG TABLET PO SCH (21:07)
[2017-05-31] MEDS: OXYCODONE HCL IR 5 MG TABLET PO PRN ×2 (03:23→11:18)
[2017-05-31] MEDS: LANSOPRAZOLE 30 MG TAB.RAP.DR PO SCH (05:35)
[2017-05-31] MEDS: LEVOTHYROXINE SODIUM 0.075 MG TABLET PO SCH (08:03)
[2017-05-31] MEDS: CARBOXYMETHYLCELLULOSE SOD 0.5% 0.4 ML DROPERETTE OP SCH (08:18)
[2017-05-31] MEDS: SENNOSIDES/DOCUSATE 8.6-50 MG 1 EACH TABLET PO SCH ×2 (09:28→18:08)
[2017-05-31] MEDS: PRENATAL VITAMIN W-O CA NO5/FE FUMARATE/FA CAPSULE PO SCH (09:28)
--- NOTE | 2017-05-31 14:43 | PDOC TRANSFER SUMMARY ---
General - Admit/Disc Date/PCP Admission Date/Primary Care Provider: 05/26/17 05:30 MIRIAM ANDREWS, Discharge Date: 05/31/17 - Discharge Diagnosis (1) Arthritis of left knee Is this a current diagnosis for this admission?: Yes - Additional Information Resuscitation Status: Full Code Discharge Diet: As Tolerated, Regular Discharge Activity: Activity As Tolerated, Balance Activity w/Rest, No tub bath Home Medications: Levothyroxine Sodium [Synthroid] 75 mcg PO QAM 02/10/16 Naproxen Sodium [Aleve] 220 mg PO QPM 05/24/17 Carboxymethylcellulose Sodium [Refresh Celluvisc Drops] 1 dropperful OU QAM Oxycodone HCl [Oxy-Ir 5 mg Tablet] 5 mg PO Q6HP PRN #0 tablet 05/31/17 Rivaroxaban [Xarelto 10 mg Tablet] 10 mg PO QHS #0 tablet 05/31/17 History of Present Illness Admission Date/PCP: 05/26/17 05:30 MIRIAM ANDREWS, History of Present Illness: TAD MURRIETA is a 72 year old female progressive left knee pain and functional disability secondary osteoarthritis. She is admitted for elective left knee arthroplasty. Hospital Course Hospital Course: Admitted through the operating room where she undergoes uncomplicated left knee arthroplasty. She is returned to the floor in satisfactory condition. She makes excellent progress with physical therapy. She subsequently for discharge to longterm facility on a weightbearing as tolerated basis. Physical Exam Vital Signs: Temp Pulse Resp BP Pulse Ox 37.1 C 65 16 151/74 H 100 05/31/17 11:11 05/31/17 11:11 05/31/17 11:11 05/31/17 11:11 05/31/17 11:11 Intake & Output 05/30/17 05/31/17 06/01/17 06:59 06:59 06:59 Intake Total 1633 1726 1140 Output Total 400 Balance 1233 1726 1140 Weight 88.4 kg General appearance: PRESENT: no acute distress Head exam: PRESENT: normocephalic Eye exam: PRESENT: EOMI Respiratory exam: PRESENT: unlabored Cardiovascular exam: PRESENT: RRR Pulses: PRESENT: +1 pedal pulses bilateral Vascular exam: PRESENT: normal capillary refill GI/Abdominal exam: PRESENT: soft Rectal exam: PRESENT: deferred Extremities exam: PRESENT: other - Knee picot dressing is clean dry and intact. There is minimal distal edema. Distal neurovascular examination is intact. Neurological exam: PRESENT: alert, awake, oriented to person, oriented to place , oriented to time, oriented to situation. ABSENT: motor sensory deficit Psychiatric exam: PRESENT: appropriate affect, normal mood. ABSENT: homicidal ideation, suicidal ideation Skin exam: PRESENT: dry, intact, warm. ABSENT: cyanosis, rash Results Laboratory Results: 05/29/17 05:03 05/27/17 04:38 Impressions: Knee X-Ray 05/26/17 08:38 IMPRESSION: SATISFACTORY POSTOPERATIVE LEFT KNEE. Status: Imported from PACS Transfer Plan - Disposition Transfer Plan: Be transferred to a longterm facility for ongoing physical and occupational therapy as well as longterm. She will continue on weightbearing as tolerated ambulatory program. Left knee picot dressing can be changed on postop day 7 and replaced with an OpSite. Follow-up will be with Dr. Rich in the [facility] for surgery in 2 weeks for staple removal. - Time Spent with Patient Time spent with patient: Less than 30 Minutes
[2017-05-31 17:13] VITALS: BP 130/69
== END 2017-05-31 18:15 | DRG 470 ==
LOC: INOR 05:30 → 4W 11:22
PROVIDERS: ADMIT Orthopaedic Surgery; ATTEND Orthopaedic Surgery
PROC: 0SRD0J9 Replacement of Left Knee Joint with Synthetic Substitute, Cemented, Open Approach (ICD-10-PCS; principal; 2017-05-26 07:30)
DX: M17.12 Unilateral primary osteoarthritis, left knee (principal); M81.0 Age-related osteoporosis without current pathological fracture; I48.91 Unspecified atrial fibrillation; Z98.42 Cataract extraction status, left eye; Z79.899 Other long term (current) drug therapy; Z85.9 Personal history of malignant neoplasm, unspecified; Z96.641 Presence of right artificial hip joint; Z82.49 Family history of ischemic heart disease and other diseases of the circulatory system
CPT/HCPCS: 01402; 36415; 80048; 85027; 88304; 88311; 94799; C2625; C9290; G8978-GP; G8979-GP; G8987-GO; G8988-GO; J0131; J0690; J1170; J1741; J2250; J2405; J2704; J3010; J3370; J3490; J7050; J7060; J7120

== ENCOUNTER 2017-07-04 05:37 | Emergency (ER) | payer MEDICARE, OTHER ==
--- NOTE | 2017-07-04 06:12 | ER Document Report ---
ED Dizziness/Weakness - General Information source: Patient TRAVEL OUTSIDE OF THE [place] IN LAST 30 DAYS: No - HPI Patient complains to provider of: Dizziness, Vertigo Associated symptoms: Other - see above <JENNIFER ROBIN - Last Filed: 07/04/17 08:05> <RUBÉN TOTH - Last Filed: 07/04/17 13:46> - General Chief Complaint: Dizziness Stated Complaint: DIZZY Time Seen by Provider: 07/04/17 06:04 Notes: Patient is a 72 year old female who presents to the ED with complaints of dizziness. Patient has a history of vertigo and states this is the same as previous episodes. Patient is nauseous but has not had any vomiting. Patient has taken Meclazine this morning wiht no relief. Patient adds that yesterday her newly replaced knee was stiff and she attributed it to being dehydrated. She states that she has not been drinking as much as she normally does because she has not felt thirsty. (JENNIFRE ROBIN) - Related Data Allergies/Adverse Reactions: No Known Allergies Allergy (Verified 07/04/17 05:42) Past Medical History - General Information source: Patient - Social History Smoking Status: Unknown if Ever Smoked Family History: Reviewed & Not Pertinent Patient has suicidal ideation: No Patient has homicidal ideation: No - Past Medical History Cardiac Medical History: Reports: Hx Atrial Fibrillation Pulmonary Medical History: Endocrine Medical History: Reports: Hx Hypothyroidism Renal/ Medical History: Malignancy Medical History: Musculoskeltal Medical History: Reports Hx Arthritis Psychiatric Medical History: Past Surgical History: Reports: Hx Thyroid Surgery - one removed, Hx Tonsillectomy - T&A - Immunizations Hx Diphtheria, Pertussis, Tetanus Vaccination: No <JENNIFER ROBIN - Last Filed: 07/04/17 08:05> Review of Systems - Review of Systems Constitutional: No symptoms reported EENT: See HPI, Vertigo Cardiovascular: See HPI, Dizziness Respiratory: No symptoms reported Gastrointestinal: No symptoms reported Genitourinary: No symptoms reported Female Genitourinary: No symptoms reported Musculoskeletal: No symptoms reported Skin: No symptoms reported Hematologic/Lymphatic: No symptoms reported Neurological/Psychological: No symptoms reported <JENNIFER ROBIN - Last Filed: 07/04/17 08:05> Physical Exam - General General appearance: Appears well, Alert In distress: None - HEENT Head: Normocephalic, Atraumatic Eyes: Normal Extraocular movements intact: Yes Pupils: PERRL Neck: Normal - Respiratory Respiratory status: No respiratory distress Breath sounds: Normal - Cardiovascular Rhythm: Regular Heart sounds: Normal auscultation Murmur: No - Abdominal Inspection: Normal Distension: No distension Bowel sounds: Normal Tenderness: Nontender - Back Back: Normal - Extremities General upper extremity: Normal inspection, Normal ROM, Normal strength General lower extremity: Normal inspection, Normal ROM, Normal strength. No: Edema - Neurological Neuro grossly intact: Yes - Psychological Associated symptoms: Normal affect, Normal mood - Skin Skin Temperature: Warm Skin Moisture: Dry Skin Color: Normal <JENNIFER ROBIN - Last Filed: 07/04/17 08:05> - Vital signs Vitals: Temp Pulse Resp BP Pulse Ox 98.7 F 64 18 147/89 H 97 07/04/17 05:42 07/04/17 05:42 07/04/17 05:42 07/04/17 05:42 07/04/17 05:42 Course - Laboratory Result Diagrams: 07/04/17 06:45 07/04/17 06:45 <JENNIFER ROBIN - Last Filed: 07/04/17 08:05> - Laboratory Result Diagrams: 07/04/17 06:45 07/04/17 06:45 <RUBÉN TOTH - Last Filed: 07/04/17 13:46> - Re-evaluation Re-evalutation: 07/04/17 07:35 Patient presents emerged from chief complaint of I have vertigo. She says she has had multiple times in the past started last evening exactly the same in character quality frequency duration is previous episodes no additional strokelike symptoms. No ataxia or headache. Speech is normal no recent history of trauma or fall chest pain shortness breath syncope or near syncope. On examination her dizziness is reproducible with head movement change in position. She has no vertical or lateral nystagmus or ataxia. Gave her to Antivert 50 mg IV fluids and oral Zofran reassess significantly improved feels like she can go home at this point told her to take 50 mg of Antivert every 6 hours for the next 2 or 3 days follow-up with her primary care physician in 2-3 days and discussed reasons for ED return sooner (RUBÉN TOTH) - Vital Signs Vital signs: Temp Pulse Resp BP Pulse Ox 98.7 F 64 16 134/75 H 99 07/04/17 05:42 07/04/17 05:42 07/04/17 07:39 07/04/17 07:39 07/04/17 07:39 - Laboratory Laboratory results interpreted by me: 07/04/17 06:45 RBC 3.45 L Hgb 10.5 L Hct 30.6 L RDW 15.0 H Eosinophils % 7.1 H Discharge <JENNIFER ROBIN - Last Filed: 07/04/17 08:05> <RUBÉN TOTH - Last Filed: 07/04/17 13:46> - Discharge Clinical Impression: Vertigo Condition: Stable Disposition: HOME, SELF-CARE Additional Instructions: Vertigo You have experienced an episode of vertigo -- a whirling dizziness which may be accompanied by nausea and vomiting or staggering. Vertigo is often caused by an irritation of the inner ear, in which case it is called labyrinthitis. It can also be a symptom of a degenerating inner ear, nerve damage, or brain injury. Your physician has evaluated you to determine whether any further testing is necessary. Vertigo is often treated with dramamine or meclizine. These medications are helpful, but stronger medication may be needed if you are vomiting. Rest in bed. You should not drive or operate machinery until completely better. It may take one to three weeks for recovery. If there are new symptoms, such as decreased hearing or vision, severe headache, weakness or faintness, or confusion, call the physician. Referrals: RAJAN LOVETT MD [Primary Care Provider] - Follow up in 3-5 days Scribe Attestation: 07/04/17 07:34 I personally performed the services described in the documentation reviewed the documentation recorded by my scribe in my presence and it accurately and completely records my words and actions (RUBÉN TOTH) [employer] Documentation - Scribe Written by Thania:: thania Hobbs, 07/04/2017, 804 acting as scribe for :: Elton <JENNIFER ROBIN - Last Filed: 07/04/17 08:05>
[2017-07-04] MEDS ORDERED: NORMAL SALINE 250 ML IV ONE (06:13)
[2017-07-04] MEDS ORDERED: MECLIZINE HCL 25 MG TABLET PO ONE (06:13)
[2017-07-04] MEDS ORDERED: ONDANSETRON 4 MG TAB.RAPDIS PO ONE (06:13)
[2017-07-04 07:01] LABS: ABSOLUTE BASOPHILS # (AUTO) 0.1 10^3/uL (0.0-0.2); ABSOLUTE EOSINOPHILS # (AUTO) 0.3 10^3/uL (0.0-0.6); ABSOLUTE MONOCYTES (AUTO) 0.3 10^3/uL (0.1-1.4); ABSOLUTE NEUT (AUTO) 3.1 10^3/uL (1.7-8.2); BASOPHILS % (AUTO) 1.4 % (0-2); EOSINOPHILS % (AUTO) 7.1 % (0-6); HEMATOCRIT 30.6 % (36.0-47.0); HEMOGLOBIN 10.5 g/dL (12.0-15.5); HGB HCT DIFFERENCE 0.9; MEAN CORPUSCULAR HEMOGLOBIN 30.4 pg (27.0-33.4); MEAN CORPUSCULAR HGB CONC 34.3 g/dL (32.0-36.0); MEAN CORPUSCULAR VOLUME 89 fl (80-97); RED BLOOD COUNT 3.45 10^6/uL (3.72-5.28); SEGMENTED NEUTROPHILS % (AUTO) 63.5 % (42-78); WHITE BLOOD COUNT 4.8 10^3/uL (4.0-10.5)
[2017-07-04 07:13] LABS: ANION GAP 8 (5-19); BLOOD UREA NITROGEN 18 mg/dL (7-20); CALCIUM 9.4 mg/dL (8.4-10.2); CARBON DIOXIDE 27 mmol/L (22-30); CHLORIDE 103 mmol/L (98-107); CREATININE RESULT 0.75 mg/dL (0.52-1.25); GLUCOSE 98 mg/dL (75-110); POTASSIUM 4.6 mmol/L (3.6-5.0); SODIUM 138.2 mmol/L (137-145)
[2017-07-04 07:40] VITALS: BP 134/75
--- NOTE | 2017-07-04 13:51 | ER Document Report ---
Doctor's Note Notes: 07/04/17 13:51 EKG shows sinus rhythm at [address] segment elevation or depression
--- NOTE | 2017-07-04 21:59 | EKG REPORT ---
SEVERITY:- ABNORMAL ECG - SINUS RHYTHM NONSPECIFIC T ABNORMALITIES, ANTERIOR LEADS : Confirmed by: Merry Samuels 04-Jul-2017 21:59:20
== END 2017-07-04 07:46 | disposition home or self-care (01) ==
LOC: ER 05:37
DX: R42 Dizziness and giddiness (principal); R11.0 Nausea; I48.91 Unspecified atrial fibrillation; E03.9 Hypothyroidism, unspecified
CPT/HCPCS: 93005; 99284; 96360; 36415; 85025; 80048; 93010; A9270 ×2; J7040; S0119

== ENCOUNTER → 2018-01-14 | Outpatient (CLI) | payer MEDICARE, OTHER ==
--- NOTE | 2018-01-14 18:47 | RADIOLOGY REPORT (SQ) ---
EXAM DESCRIPTION: CT HEAD WITHOUT COMPLETED DATE/TIME: 01/14/2018 6:22 pm REASON FOR STUDY: ACUTE POST-TRAUMATIC HEADACHE, NOT INTRACTABLE G44.319 ACUTE POST-TRAUMATIC HEADA DEJUAN, NOT INTRACTABLE COMPARISON: 04/01/2016 TECHNIQUE: Axial images acquired through the brain without intravenous contrast. Images reviewed wi th bone, brain and subdural windows. Images stored on PACS. All CT scanners at this facility use dose modulation, iterative reconstruction, and/or weight based d osing when appropriate to reduce radiation dose to as low as reasonably achievable (ALARA). [facility]: Dose Right [facility]: CareDose [facility]: Dose Right [facility]: Teradose 4D [facility]: Remind RADIATION DOSE: CT Rad equipment meets quality standard of care and radiation dose reduction techniq ues were employed. CTDIvol: 49.0 mGy. DLP: 881 mGy-cm. mGy. LIMITATIONS: None. FINDINGS: VENTRICLES: Normal size and contour. CEREBRUM: No masses. No hemorrhage. No midline shift. No evidence for acute infarction. Normal gra y/white matter differentiation. 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 No areas of low density in the white matter. CEREBELLUM: No masses. No hemorrhage. No alteration of density. No evidence for acute infarction. EXTRAAXIAL SPACES: No fluid collections. No masses. ORBITS AND GLOBE: No intra- or extraconal masses. Normal contour of globe without masses. CALVARIUM: No fracture. PARANASAL SINUSES: No fluid or mucosal thickening. SOFT TISSUES: No mass or hematoma. OTHER: No other significant finding. IMPRESSION: 1. There are no acute intracranial imaging findings. 2. 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 EVIDENCE OF ACUTE STROKE: NO. COMMENT: Quality ID # [id number]: Final reports with documentation of one or more dose reduction techniques (e.g., Automated exposure control, adjustment of the mA and/or kV according to patient size, use of iterative reconstruction technique) TECHNICAL DOCUMENTATION: JOB ID: [id number] [email or web address]- All Rights Reserved Reading location - IP/workstation name: [email or web address]
== END ==
LOC: RAD 17:03
PROVIDERS: ATTEND Internal Medicine
DX: G44.319 Acute post-traumatic headache, not intractable (principal)
CPT/HCPCS: 70450

== ENCOUNTER → 2018-02-25 | Outpatient (CLI) | payer MEDICARE, OTHER ==
[2018-02-25 13:56] LABS: APPEARANCE,URINE CLEAR; BILIRUBIN,URINE NEGATIVE (NEGATIVE); COLOR,URINE YELLOW; GLUCOSE, URINE NEGATIVE (NEGATIVE); KETONES,URINE NEGATIVE (NEGATIVE); LEUKOCYTE ESTERASE,URINE NEGATIVE (NEGATIVE); NITRITE,URINE NEGATIVE (NEGATIVE); PROTEIN,URINE NEGATIVE (NEGATIVE); URINE SPECIFIC GRAVITY 1.009; UROBILINOGEN,URINE NEGATIVE mg/dL (<2.0)
[2018-02-25 13:57] LABS: ABSOLUTE BASOPHILS # (AUTO) 0.1 10^3/uL (0.0-0.2); ABSOLUTE EOSINOPHILS # (AUTO) 0.3 10^3/uL (0.0-0.6); ABSOLUTE LYMPHOCYTES (AUTO) 1.3 10^3/uL (0.5-4.7); ABSOLUTE MONOCYTES (AUTO) 0.4 10^3/uL (0.1-1.4); ABSOLUTE NEUT (AUTO) 3.4 10^3/uL (1.7-8.2); BASOPHILS % (AUTO) 1.5 % (0-2); EOSINOPHILS % (AUTO) 5.6 % (0-6); HEMATOCRIT 37.3 % (36.0-47.0); HEMOGLOBIN 12.7 g/dL (12.0-15.5); LYMPHOCYTES % (AUTO) 23.7 % (13-45); MEAN CORPUSCULAR HEMOGLOBIN 30.1 pg (27.0-33.4); MEAN CORPUSCULAR VOLUME 89 fl (80-97); MONOCYTES % (AUTO) 7.1 % (3-13); PLATELET COUNT 320 10^3/uL (150-450); RED BLOOD COUNT 4.21 10^6/uL (3.72-5.28); RED CELL DISTRIBUTION WIDTH 14.1 % (11.5-14.0); SEGMENTED NEUTROPHILS % (AUTO) 62.1 % (42-78); TOTAL CELLS COUNTED % (AUTO) 100 %; WHITE BLOOD COUNT 5.4 10^3/uL (4.0-10.5)
--- NOTE | 2018-02-25 14:08 | RADIOLOGY REPORT (SQ) ---
EXAM DESCRIPTION: CHEST PA/LATERAL COMPLETED DATE/TIME: 02/25/2018 1:23 pm REASON FOR STUDY: PRE OP COMPARISON: 04/30/2017. EXAM PARAMETERS: NUMBER OF VIEWS: two views TECHNIQUE: Digital Frontal and Lateral radiographic views of the chest acquired. RADIATION DOSE: NA LIMITATIONS: none FINDINGS: LUNGS AND PLEURA: No opacities, masses or pneumothorax. No pleural effusion. MEDIASTINUM AND HILAR STRUCTURES: No masses or contour abnormalities. HEART AND VASCULAR STRUCTURES: Heart normal size. No evidence for failure. BONES: No acute findings. HARDWARE: None in the chest. OTHER: No other significant finding. IMPRESSION: NO SIGNIFICANT RADIOGRAPHIC FINDING IN THE CHEST. TECHNICAL DOCUMENTATION: JOB ID: [id number] [employer]- All Rights Reserved Reading location - IP/workstation name: [email or web address]
[2018-02-25 14:19] LABS: ANION GAP 9 (5-19); BLOOD UREA NITROGEN 17 mg/dL (7-20); CALCIUM 10.1 mg/dL (8.4-10.2); CARBON DIOXIDE 31 mmol/L (22-30); CHLORIDE 102 mmol/L (98-107); GLUCOSE 91 mg/dL (75-110); POTASSIUM 4.7 mmol/L (3.6-5.0); SODIUM 141.5 mmol/L (137-145)
== END ==
LOC: OD 12:50
PROVIDERS: ATTEND Orthopaedic Surgery
DX: Z01.818 Encounter for other preprocedural examination (principal); M17.11 Unilateral primary osteoarthritis, right knee
CPT/HCPCS: 36415; 71046; 80048; 81001; 85025

== ENCOUNTER 2018-03-21 07:57 | Inpatient (IN) | payer MEDICARE, OTHER ==
[~2018-03-21 07:57] MED LIST changes: +BUPIVACAINE INJ/PF LIPOSOME/PF 266 MG/20 ML SDV IJ PRN; -BUPIVACAINE INJ/PF LIPOSOME/PF 266 MG/20 ML SDV INJ PRN; +BUPIVACAINE INJ/PF LIPOSOME/PF 266 MG/20 ML SDV ONE; -IBUPROFEN 800 MG in NORMAL SALINE 250 ML IV PRN; +IBUPROFEN 800 MG/NS 250 ML IV PRN; +THROMBIN (BOVINE) 5000 UNIT EPITAXIS KIT ONE; +THROMBIN (BOVINE) TOPICAL 20000 UNIT VIAL ONE
[2018-03-21] MEDS ORDERED: LIDOCAINE 2% INJ-PF (20 MG/ML) 10 ML AMPUL ONE (08:57)
[2018-03-21] MEDS ORDERED: MIDAZOLAM 2 MG/2 ML INJ ONE (08:58)
[2018-03-21] MEDS ORDERED: FENTANYL CITRATE INJ/PF 100 MCG/2 ML AMPUL ONE ×2 (08:58→11:53)
[2018-03-21] MEDS ORDERED: DEXAMETHASONE SOD PHOSPHATE INJ 4 MG/1 ML VIAL ONE (08:58)
[2018-03-21] MEDS ORDERED: ONDANSETRON HCL INJ/PF 4 MG/2 ML SDV ONE (08:58)
[2018-03-21] MEDS ORDERED: PROPOFOL INJ 200 MG/20 ML VIAL IV ONE (08:58)
[2018-03-21] MEDS ORDERED: ACETAMINOPHEN 100 ML IV ONE (08:58)
[2018-03-21] MEDS ORDERED: TETRACAINE HCL/PF 20MG/2ML AMPULE (SPINAL) ONE (08:59)
--- NOTE | 2018-03-21 10:37 | Physician Advisory Note ---
Physician Advisor ProgressNote .: [facility] reviewed the medical record for this patient. Physician Advisor Statement: Surgical necessity - please document all specific pre-op x-ray/scan findings present that [facility] looks for: subchondral cysts, subchondral sclerosis, periarticular osteophytes, joint space narrowing, joint subluxation, AVN/osteonecrosis). Status: 73yo w/Afib, MVP, osteoporosis, very limited functional status. Has had prior TKA on left & required SNF rehab after a several-day hospital stay post-op. Expected to need SNF rehab again after this TKA. Appropriate for Inpatient status based on current [facility] guidelines. Thanks to Dr. Rich for nicely documenting nonsurgical options tried, interference with walking and stairs, exam findings in H&P. CK
[2018-03-21] MEDS ORDERED: ONDANSETRON HCL INJ/PF 4 MG/2 ML SDV IV PRN ×2 (10:40→11:07)
[2018-03-21] MEDS ORDERED: PROMETHAZINE HCL INJ 25 MG/1 ML VIAL IV PRN ×2 (10:40)
[2018-03-21] MEDS ORDERED: MEPERIDINE HCL/PF INJ 25 MG/1 ML DISP.SYRIN IV PRN (10:40)
[2018-03-21] MEDS ORDERED: MORPHINE SULFATE 10 MG/ML INJ IV PRN ×4 (10:40→11:07)
[2018-03-21] MEDS ORDERED: DIPHENHYDRAMINE HCL 50 MG/ML VIAL IV PRN ×2 (10:40→11:07)
[2018-03-21] MEDS ORDERED: FENTANYL CITRATE INJ/PF 100 MCG/2 ML AMPUL IV PRN ×3 (10:40)
--- NOTE | 2018-03-21 11:06 | Operative Report ---
Operative Report DATE OF SURGERY: 03/21/18 PREOPERATIVE DIAGNOSIS: R knee oa OPERATION: R TKA SURGEON: KATE DEL ANGEL ANESTHESIA: Spinal TISSUE REMOVED OR ALTERED: Bone to pathology ESTIMATED BLOOD LOSS: 100 PROCEDURE: Implants used: Femur: Size 6 Terry triathlon CR femur Tibia: 5 tibia Tibial liner: 9 mm CS insert Patella: 35 mm oval patella Procedure with the patient supine on the operating table the right the limb is prepped and draped in a sterile fashion. The limb was elevated for exsanguination and the tourniquet inflated to 280 torr. A standard midline median parapatellar approach the knee is taken. Access is gained to the femoral canal through the intercondylar notch. Intramedullary alignment instrumentation used to resect 10 mm of distal femur in 5 of valgus. Sizing guide indicated a size 6 femur. Appropriate cutting jig is then used to fashion anterior posterior and chamfer cuts. A trial reduction femurs performed and this is judged to be adequate. Attention was next turned to the tibia. Using an extra medullary alignment system 9 millimeters was resected off the lateral tibial plateau. This is sized to a size 5 tibia. A trial reduction was now performed with a 6 femur and a 5 tibia using a 9 millimeters spacer. It is full extension and central patellofemoral tracking. The articular surface the patella was next resected using an oscillating saw. All trial implants were removed. Polymethylmethacrylate is mixed and used to cement the above implants in place. On adequate curing the cement excess cement was removed the tourniquet was deflated hemostasis obtained the wound is then closed in layers using interrupted Vicryl followed by zaid. A sterile compressive dressing was applied and the patient returned to recovery room in satisfactory condition.
[2018-03-21] MEDS ORDERED: ZOLPIDEM TARTRATE 5 MG TABLET PO PRN (11:07)
[2018-03-21] MEDS ORDERED: MAG HYDROX/AL HYDROX/SIMETH SUSP 30 ML UDCUP PO PRN (11:07)
[2018-03-21] MEDS ORDERED: MORPHINE SULFATE 10 MG/ML INJ IM PRN (11:07)
[2018-03-21] MEDS ORDERED: ONDANSETRON 4 MG TAB.RAPDIS PO PRN (11:07)
[2018-03-21] MEDS ORDERED: RINGERS SOLUTION,LACTATED 1,000 ML IV PRN (11:07)
--- NOTE | 2018-03-21 11:57 | RADIOLOGY REPORT (SQ) ---
EXAM DESCRIPTION: KNEE RIGHT 2 VIEWS COMPLETED DATE/TIME: 03/21/2018 11:45 am REASON FOR STUDY: Post OP -Long Cassette in PACU M17.11 UNILATERAL PRIMARY OSTEOARTHRITIS, RIGHT KN EE COMPARISON: None. NUMBER OF VIEWS: Right knee two views portable TECHNIQUE: Digital radiographic images of the right knee post-procedure. LIMITATIONS: None. FINDINGS: BONES: No worrisome or unexpected findings post-procedure. DEVICE: Total knee arthroplasty. Patellar resurfacing. SOFT TISSUES: No worrisome findings. Expected postoperative soft tissue changes. IMPRESSION: SATISFACTORY POSTOPERATIVE RIGHT KNEE. TECHNICAL DOCUMENTATION: JOB ID: [id number] [employer]- All Rights Reserved Reading location - IP/workstation name: [email or web address]
[2018-03-21] MEDS ORDERED: TRANEXAMIC ACID INJ/PF 1,000 MG/10 ML SDV IV ONE (12:20)
[2018-03-21] MEDS ORDERED: DIPHENHYDRAMINE HCL 25 MG CAPSULE PO PRN (14:10)
[2018-03-21] MEDS: OXYCODONE HCL IR 5 MG TABLET PO PRN ×2 (16:32→23:22)
[2018-03-21] MEDS: IBUPROFEN 800 MG in NORMAL SALINE 250 ML IV SCH (16:33)
[2018-03-21] MEDS: SENNOSIDES/DOCUSATE 8.6-50 MG 1 EACH TABLET PO SCH (16:33)
[2018-03-21] MEDS: PREGABALIN 75 MG CAPSULE PO SCH (21:27)
[2018-03-21] MEDS: OXYCODONE HCL SR 10 MG TABLET PO SCH (21:27)
[2018-03-21] MEDS ORDERED: VANCOMYCIN HCL 1,000 MG in DEXTROSE 5%-WATER 250 ML IV ONE (23:07)
[2018-03-22] MEDS: IBUPROFEN 800 MG in NORMAL SALINE 250 ML IV SCH ×3 (02:04→18:36)
[2018-03-22] MEDS: LANSOPRAZOLE 30 MG TAB.RAP.DR PO SCH (05:14)
[2018-03-22] MEDS: LEVOTHYROXINE SODIUM 0.075 MG TABLET PO SCH (05:16)
[2018-03-22] MEDS ORDERED: LANSOPRAZOLE 30 MG TAB.RAP.DR PO SCH (06:00)
[2018-03-22 06:25] LABS: HEMOGLOBIN 9.4 g/dL (12.0-15.5); MEAN CORPUSCULAR HGB CONC 33.6 g/dL (32.0-36.0); MEAN CORPUSCULAR VOLUME 89 fl (80-97); PLATELET COUNT 222 10^3/uL (150-450); RED BLOOD COUNT 3.14 10^6/uL (3.72-5.28); RED CELL DISTRIBUTION WIDTH 14.1 % (11.5-14.0); WHITE BLOOD COUNT 8.6 10^3/uL (4.0-10.5)
[2018-03-22 06:46] LABS: ANION GAP 9 (5-19); BLOOD UREA NITROGEN 17 mg/dL (7-20); CALCIUM 8.5 mg/dL (8.4-10.2); CARBON DIOXIDE 24 mmol/L (22-30); CHLORIDE 102 mmol/L (98-107); GLUCOSE 115 mg/dL (75-110); SODIUM 135.2 mmol/L (137-145)
--- NOTE | 2018-03-22 07:21 | PDOC PROGRESS REPORT ---
Subjective Progress Note for:: 03/22/18 Reason For Visit: RIGHT KNEE ARTHRITIS 73-year-old white female postop day 1 status post right knee arthroplasty with an uneventful postoperative course. Physical Exam Vital Signs: Temp Pulse Resp BP Pulse Ox 36.4 C 61 16 126/61 H 100 03/21/18 23:34 03/21/18 23:34 03/21/18 23:34 03/21/18 23:34 03/21/18 23:34 Intake & Output 03/21/18 03/22/18 03/23/18 06:59 06:59 06:59 Intake Total 6632 Output Total 2000 Balance 4631 General appearance: PRESENT: no acute distress Head exam: PRESENT: normocephalic Respiratory exam: PRESENT: unlabored Cardiovascular exam: PRESENT: RRR Pulses: PRESENT: +1 pedal pulses bilateral Vascular exam: PRESENT: normal capillary refill GI/Abdominal exam: PRESENT: soft Rectal exam: PRESENT: deferred Extremities exam: PRESENT: other - Compressive dressing is removed today at the patient's request. Underlying op site dressing is clean dry and intact. There is minimal pedal edema. Neurological exam: PRESENT: alert, awake, oriented to person, oriented to place , oriented to time, oriented to situation. ABSENT: motor sensory deficit Psychiatric exam: PRESENT: appropriate affect, normal mood. ABSENT: homicidal ideation, suicidal ideation Skin exam: PRESENT: dry, intact, warm. ABSENT: cyanosis, rash Results Laboratory Results: 03/22/18 05:46 03/22/18 05:46 03/22/18 03/22/18 05:46 05:46 WBC 8.6 RBC 3.14 L Hgb 9.4 L Hct 28.0 L MCV 89 MCH 30.0 MCHC 33.6 RDW 14.1 H Plt Count 222 Sodium 135.2 L Potassium 4.0 Chloride 102 Carbon Dioxide 24 Anion Gap 9 BUN 17 Creatinine 0.62 Est GFR ( Amer) > 60 Est GFR (Non-Af Amer) > 60 Glucose 115 H Calcium 8.5 Impressions: Knee X-Ray 03/21/18 11:08 IMPRESSION: SATISFACTORY POSTOPERATIVE RIGHT KNEE. Status: Imported from PACS Assessment & Plan - Diagnosis (1) Arthritis of right knee Is this a current diagnosis for this admission?: Yes Plan: 73-year-old white female status post right knee arthroplasty postop day 1 with an uncomplicated postoperative course. Anticipate an additional 48 hours of hospitalization and then transfer the patient to nursing home facility because of her social situation. - Time Time Spent with patient: 15-24 minutes Anticipated discharge: SNF Within: within 48 hours
[2018-03-22] MEDS ORDERED: LEVOTHYROXINE SODIUM 0.025 MG TABLET PO SCH (08:00)
[2018-03-22] MEDS ORDERED: CARBOXYMETHYLCELLULOSE SODIUM OU SCH (08:00)
[2018-03-22] MEDS: OXYCODONE HCL SR 10 MG TABLET PO SCH ×2 (09:22→14:04)
[2018-03-22] MEDS: ASPIRIN 81 MG TABLET, ENT COATED PO SCH (09:22)
[2018-03-22] MEDS: PREGABALIN 75 MG CAPSULE PO SCH ×2 (09:22→14:04)
[2018-03-22] MEDS: CARBOXYMETHYLCELLULOSE SOD 0.5% 0.4 ML DROPERETTE OU SCH (09:23)
[2018-03-22] MEDS: PRENATAL VITAMIN W DHA CAPSULE PO SCH (09:23)
[2018-03-22] MEDS: SENNOSIDES/DOCUSATE 8.6-50 MG 1 EACH TABLET PO SCH ×2 (09:23→18:36)
--- NOTE | 2018-03-22 10:44 | Physician Advisory Note ---
Physician Advisor ProgressNote .: [facility] I have reviewed the medical record for this patient. Physician Advisor Statement: Please consider documenting, if you agree: 1. "Acute Blood Loss Anemia due to ; Hgb was 12.7 pre-op" 2. The clinical [not just social] factors, such as listed below, which make pt not safe to go home alone yet. Status: Pt with nausea & recurrent bradycardia in the 50s on day of surgery. ROM not yet full. Walked 300ft w/CGA of 1 & FWW post-op, but standing impaired , endurance only fair, safety awareness only fair, a falls risk. PT noted pt needs to improve ROM, strength, functional mobility, should go to SNF rehab for further progress w/therapy before safe to go home, as she lives alone. Appropriate Inpt. Thanks! CK
[2018-03-23] MEDS: IBUPROFEN 800 MG in NORMAL SALINE 250 ML IV SCH ×2 (01:45→09:22)
[2018-03-23] MEDS: LEVOTHYROXINE SODIUM 0.075 MG TABLET PO SCH (05:13)
[2018-03-23] MEDS: LANSOPRAZOLE 30 MG TAB.RAP.DR PO SCH (05:14)
[2018-03-23 06:44] LABS: HEMATOCRIT 26.6 % (36.0-47.0); HEMOGLOBIN 9.1 g/dL (12.0-15.5); MEAN CORPUSCULAR HEMOGLOBIN 30.4 pg (27.0-33.4); MEAN CORPUSCULAR HGB CONC 34.1 g/dL (32.0-36.0); MEAN CORPUSCULAR VOLUME 89 fl (80-97); PLATELET COUNT 203 10^3/uL (150-450); RED BLOOD COUNT 2.98 10^6/uL (3.72-5.28); RED CELL DISTRIBUTION WIDTH 14.1 % (11.5-14.0); WHITE BLOOD COUNT 5.8 10^3/uL (4.0-10.5)
--- NOTE | 2018-03-23 07:23 | PDOC PROGRESS REPORT ---
Subjective Progress Note for:: 03/23/18 Reason For Visit: RIGHT KNEE ARTHRITIS 73-year-old white female now postop day 2 from right knee arthroplasty. Uneventful postoperative course. Patient [facility] [place] [facility]. Physical Exam Vital Signs: Temp Pulse Resp BP Pulse Ox 36.8 C 64 16 123/63 96 03/22/18 23:10 03/22/18 23:10 03/22/18 23:10 03/22/18 23:10 03/22/18 23:10 Intake & Output 03/22/18 03/23/18 03/24/18 06:59 06:59 06:59 Intake Total 6632 2553 Output Total 2000 Balance 4631 2553 General appearance: PRESENT: no acute distress Head exam: PRESENT: normocephalic Respiratory exam: PRESENT: unlabored Cardiovascular exam: PRESENT: RRR Pulses: PRESENT: +1 pedal pulses bilateral Vascular exam: PRESENT: normal capillary refill GI/Abdominal exam: PRESENT: soft Rectal exam: PRESENT: deferred Extremities exam: PRESENT: other - Right knee dressing clean dry and intact. Minimal pedal edema. Distal neurovascular examination is intact. Neurological exam: PRESENT: alert, awake, oriented to person, oriented to place , oriented to time, oriented to situation. ABSENT: motor sensory deficit Psychiatric exam: PRESENT: appropriate affect, normal mood. ABSENT: homicidal ideation, suicidal ideation Skin exam: PRESENT: dry, intact, warm. ABSENT: cyanosis, rash Results Laboratory Results: 03/23/18 06:17 03/22/18 05:46 03/23/18 06:17 WBC 5.8 RBC 2.98 L Hgb 9.1 L Hct 26.6 L MCV 89 MCH 30.4 MCHC 34.1 RDW 14.1 H Plt Count 203 Impressions: Knee X-Ray 03/21/18 11:08 IMPRESSION: SATISFACTORY POSTOPERATIVE RIGHT KNEE. Status: Imported from PACS Assessment & Plan - Diagnosis (1) Arthritis of right knee Is this a current diagnosis for this admission?: Yes Plan: 73-year-old white female status post right knee arthroplasty with uneventful postoperative course. Patient [facility] facility [facility] tomorrow. - Time Time Spent with patient: 15-24 minutes Anticipated discharge: SNF Within: when bed available
[2018-03-23] MEDS: OXYCODONE HCL SR 10 MG TABLET PO SCH (09:11)
[2018-03-23] MEDS: PREGABALIN 75 MG CAPSULE PO SCH ×2 (09:11→22:02)
[2018-03-23] MEDS: CARBOXYMETHYLCELLULOSE SOD 0.5% 0.4 ML DROPERETTE OU SCH (09:21)
[2018-03-23] MEDS: ASPIRIN 81 MG TABLET, ENT COATED PO SCH (09:22)
[2018-03-23] MEDS: SENNOSIDES/DOCUSATE 8.6-50 MG 1 EACH TABLET PO SCH ×2 (09:22→16:51)
[2018-03-23] MEDS: PRENATAL VITAMIN W DHA CAPSULE PO SCH (09:22)
[2018-03-23] MEDS: ACETAMINOPHEN 325 MG TABLET PO PRN (16:51)
[2018-03-23] MEDS ORDERED: ONDANSETRON HCL INJ/PF 4 MG/2 ML SDV ONE (16:59)
[2018-03-24 05:18] LABS: HEMOGLOBIN 9.6 g/dL (12.0-15.5); MEAN CORPUSCULAR HEMOGLOBIN 30.4 pg (27.0-33.4); MEAN CORPUSCULAR HGB CONC 34.5 g/dL (32.0-36.0); MEAN CORPUSCULAR VOLUME 88 fl (80-97); PLATELET COUNT 255 10^3/uL (150-450); RED BLOOD COUNT 3.18 10^6/uL (3.72-5.28); WHITE BLOOD COUNT 6.3 10^3/uL (4.0-10.5)
[2018-03-24] MEDS: LEVOTHYROXINE SODIUM 0.075 MG TABLET PO SCH (06:22)
[2018-03-24] MEDS: LANSOPRAZOLE 30 MG TAB.RAP.DR PO SCH (06:35)
--- NOTE | 2018-03-24 07:09 | PDOC TRANSFER SUMMARY ---
General - Admit/Disc Date/PCP Admission Date/Primary Care Provider: 03/21/18 07:57 MIRIAM ANDREWS, Discharge Date: 03/24/18 - Discharge Diagnosis (1) Arthritis of right knee Is this a current diagnosis for this admission?: Yes - Additional Information Resuscitation Status: Full Code Discharge Diet: As Tolerated, Regular Discharge Activity: Balance Activity w/Rest, No Driving, No tub bath Home Medications: Carboxymethylcellulose Sodium [Refresh Celluvisc Drops] 1 drop OU Q12 03/21/18 Levothyroxine Sodium [Synthroid] 75 mcg PO QAM 03/21/18 Multivitamin [Daily Multiple Vitamin] 1 tab PO DAILY 03/21/18 Sulindac 200 mg PO DAILYP PRN 03/21/18 Aspirin [Ecotrin 81 mg EC Tablet] 81 mg PO DAILY tabec 03/24/18 History of Present Illness Admission Date/PCP: 03/21/18 07:57 MIRIAM ANDREWS, History of Present Illness: TAD MURRIETA is a 73 year old female progressive right knee pain and functional disability secondary osteoarthritis. Patient is admitted for elective right knee arthroplasty. Hospital Course Hospital Course: Patient is admitted through the operating room she undergoes uncomplicated right knee arthroplasty. She is returned to floor in satisfactory condition. She makes excellent progress with physical therapy in terms of ambulation and range of motion. Pain is well controlled with oral analgesics. Patient's hospitalization is continued to postop day 3 to permit her discharge to a halfway facility because she lives alone. Physical Exam Vital Signs: Temp Pulse Resp BP Pulse Ox 37.6 C 72 15 143/77 H 98 03/23/18 23:13 03/23/18 23:13 03/23/18 23:13 03/23/18 23:13 03/23/18 23:13 Intake & Output 03/23/18 03/24/18 03/25/18 06:59 06:59 06:59 Intake Total 2553 1723 Balance 2553 1723 General appearance: PRESENT: no acute distress Head exam: PRESENT: normocephalic Respiratory exam: PRESENT: unlabored Cardiovascular exam: PRESENT: RRR Pulses: PRESENT: +1 pedal pulses bilateral Vascular exam: PRESENT: normal capillary refill GI/Abdominal exam: PRESENT: soft Rectal exam: PRESENT: deferred Extremities exam: PRESENT: other - Right knee dressing clean dry and intact with 2 small areas quarter size of old dried blood. Minimal pedal edema. Distal neurovascular examination is intact. Neurological exam: PRESENT: alert, awake, oriented to person, oriented to place , oriented to time, oriented to situation. ABSENT: motor sensory deficit Psychiatric exam: PRESENT: appropriate affect, normal mood. ABSENT: homicidal ideation, suicidal ideation Skin exam: PRESENT: dry, intact, warm. ABSENT: cyanosis, rash Results Laboratory Results: 03/24/18 04:40 03/22/18 05:46 03/24/18 04:40 WBC 6.3 RBC 3.18 L Hgb 9.6 L Hct 28.0 L MCV 88 MCH 30.4 MCHC 34.5 RDW 14.0 Plt Count 255 Impressions: Knee X-Ray 03/21/18 11:08 IMPRESSION: SATISFACTORY POSTOPERATIVE RIGHT KNEE. Status: Imported from PACS Transfer Plan - Disposition Transfer Plan: Patient to be discharged with halfway facility. She can work with physical therapy on range of motion, strengthening, and weightbearing ambulation on the right lower extremity. Follow-up with Dr. Rich [facility] for surgery in 2 weeks for staple removal. Qualifiers - * PATIENT BEING DISCHARGED WITH ANY OF THE FOLLOWING DIAGNOSIS: No VTE patient discharged on overlapping Therapy?: Yes
[2018-03-24] MEDS: PRENATAL VITAMIN W DHA CAPSULE PO SCH (09:12)
[2018-03-24] MEDS: ASPIRIN 81 MG TABLET, ENT COATED PO SCH (09:12)
[2018-03-24] MEDS: SENNOSIDES/DOCUSATE 8.6-50 MG 1 EACH TABLET PO SCH (09:13)
[2018-03-24] MEDS: PREGABALIN 75 MG CAPSULE PO SCH (09:13)
[2018-03-24] MEDS ORDERED: ONDANSETRON HCL INJ/PF 4 MG/2 ML SDV IV PRN (10:00)
[2018-03-24] MEDS ORDERED: ONDANSETRON 4 MG TAB.RAPDIS PO PRN (10:00)
[2018-03-24] MEDS: CARBOXYMETHYLCELLULOSE SOD 0.5% 0.4 ML DROPERETTE OU SCH (11:00)
[2018-03-24] MEDS: ACETAMINOPHEN 325 MG TABLET PO PRN (11:06)
[2018-03-24 16:11] VITALS: BP 123/61
[2018-03-25] MEDS ORDERED: LANSOPRAZOLE 30 MG TAB.RAP.DR PO SCH (06:00)
== END 2018-03-24 16:30 | DRG 470 ==
LOC: INOR 07:57 → 4S 12:39
PROVIDERS: ADMIT Orthopaedic Surgery; ATTEND Orthopaedic Surgery
PROC: 0SRC0J9 Replacement of Right Knee Joint with Synthetic Substitute, Cemented, Open Approach (ICD-10-PCS; principal; 2018-03-21 10:00)
DX: M17.11 Unilateral primary osteoarthritis, right knee (principal); M25.562 Pain in left knee; K21.9 Gastro-esophageal reflux disease without esophagitis; E03.9 Hypothyroidism, unspecified; I48.91 Unspecified atrial fibrillation
CPT/HCPCS: 01402; 36415; 80048; 85027; 88305; 88311; 94799; C1713; C1776; C9290; G8978-GP; G8979-GP; G8987-GO; G8988-GO; G8989-GO; J0131; J0690; J1100; J1741; J2250; J2405; J2704; J3010; J3370; J3490; J7050; J7060; J7120

== ENCOUNTER → 2018-03-29 | Outpatient (CLI) | payer MEDICARE, OTHER | LOC: PNR 11:34 | PROVIDERS: ATTEND Family Medicine | DX: E03.9 Hypothyroidism, unspecified (principal) | CPT/HCPCS: 84443 ==

== ENCOUNTER → 2019-02-07 | Outpatient (CLI) | payer MEDICARE, OTHER ==
--- NOTE | 2019-02-07 16:13 | RADIOLOGY REPORT (SQ) ---
EXAM DESCRIPTION: CHEST PA/LATERAL COMPLETED DATE/TIME: 02/07/2019 3:50 pm REASON FOR STUDY: MILD INTERMITTENT ASTHMA WITH (ACUTE) EXACERBATION,ACUTE UPPER RESPIRATORY COMPARISON: Two-view chest 09/28/2016, 10/25/2014 EXAM PARAMETERS: NUMBER OF VIEWS: two views TECHNIQUE: Digital Frontal and Lateral radiographic views of the chest acquired. RADIATION DOSE: NA LIMITATIONS: none FINDINGS: LUNGS AND PLEURA: No opacities, masses or pneumothorax. No pleural effusion. MEDIASTINUM AND HILAR STRUCTURES: No masses or contour abnormalities. HEART AND VASCULAR STRUCTURES: Heart normal size. No evidence for failure. BONES: No acute findings. HARDWARE: None in the chest. OTHER: No other significant finding. IMPRESSION: NO SIGNIFICANT RADIOGRAPHIC FINDING IN THE CHEST. TECHNICAL DOCUMENTATION: JOB ID: [id number] [employer]- All Rights Reserved Reading location - IP/workstation name: [email or web address]
[2019-02-07 16:24] LABS: ABSOLUTE BASOPHILS # (AUTO) 0.1 10^3/uL (0.0-0.2); ABSOLUTE EOSINOPHILS # (AUTO) 0.4 10^3/uL (0.0-0.6); ABSOLUTE LYMPHOCYTES (AUTO) 1.5 10^3/uL (0.5-4.7); ABSOLUTE MONOCYTES (AUTO) 0.3 10^3/uL (0.1-1.4); ABSOLUTE NEUT (AUTO) 2.1 10^3/uL (1.7-8.2); BASOPHILS % (AUTO) 1.9 % (0-2); HEMATOCRIT 35.1 % (36.0-47.0); LYMPHOCYTES % (AUTO) 33.1 % (13-45); MEAN CORPUSCULAR HEMOGLOBIN 30.8 pg (27.0-33.4); MEAN CORPUSCULAR HGB CONC 34.1 g/dL (32.0-36.0); MEAN CORPUSCULAR VOLUME 90 fl (80-97); MONOCYTES % (AUTO) 7.7 % (3-13); PLATELET COUNT 332 10^3/uL (150-450); RED BLOOD COUNT 3.88 10^6/uL (3.72-5.28); RED CELL DISTRIBUTION WIDTH 14.3 % (11.5-14.0); SEGMENTED NEUTROPHILS % (AUTO) 47.3 % (42-78); TOTAL CELLS COUNTED % (AUTO) 100 %; WHITE BLOOD COUNT 4.5 10^3/uL (4.0-10.5)
[2019-02-07 16:49] LABS: ANION GAP 8 (5-19); BLOOD UREA NITROGEN 13 mg/dL (7-20); CARBON DIOXIDE 28 mmol/L (22-30); CHLORIDE 104 mmol/L (98-107); POTASSIUM 4.1 mmol/L (3.6-5.0); SODIUM 139.8 mmol/L (137-145)
== END ==
LOC: OD 15:20
PROVIDERS: ATTEND Internal Medicine
DX: J45.21 Mild intermittent asthma with (acute) exacerbation (principal); J06.9 Acute upper respiratory infection, unspecified; R53.83 Other fatigue; R05 Cough
CPT/HCPCS: 36415; 71046; 80051; 82565; 84520; 85025

== ENCOUNTER → 2020-04-20 | Outpatient (CLI) | payer MEDICARE, OTHER ==
--- NOTE | 2020-04-20 11:52 | RADIOLOGY REPORT (SQ) ---
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 TECHNIQUE: CT scanogram of the bilateral lower extremities is performed including pelvis to ankles. Measurements of femur, tibia, and entire lower extremities performed by the radiologist and saved to PACS. All CT scanners at this facility use dose modulation, iterative reconstruction, and/or weight based d osing when appropriate to reduce radiation dose to as low as reasonably achievable (ALARA). [facility]: Dose Right [facility]: CareDose [facility]: Dose Right [facility]: Teradose 4D [facility]: [employer] RADIATION DOSE: mGy. LIMITATIONS: None. FINDINGS: RIGHT: FEMUR: 42.8 cm. TIBIA: 35.8 cm. TOTAL RIGHT LOWER EXTREMITY LENGTH: 79.7 cm. LEFT: FEMUR: 42.4 cm. TIBIA: 36.3 cm. TOTAL LEFT LOWER EXTREMITY LENGTH: 79.6 cm. IMPRESSION: LEG LENGTH MEASUREMENTS DETAILED ABOVE. TECHNICAL DOCUMENTATION: JOB ID: [id number] Quality ID # [id number]: Final reports with documentation of one or more dose reduction techniques (e.g., Au tomated exposure control, adjustment of the mA and/or kV according to patient size, use of iterative reconstruction technique) 2010 [email or web address]- All Rights Reserved Reading location - IP/workstation name: [email or web address]
== END ==
LOC: RAD 10:34
PROVIDERS: ATTEND Podiatrist Foot & Ankle Surgery
DX: Q72.819 Congenital shortening of unspecified lower limb (principal)
CPT/HCPCS: 77073